=== PATIENT | female | born 1945 | race Caucasian/White ===

== ENCOUNTER 2017-05-11 01:50 | Inpatient (IN) | payer MEDICARE, OTHER ==
[~2017-05-11] VITALS: Ht 152.4 cm; Wt 70.0 kg
[2017-05-11] VITALS (7 sets, daily range): BP systolic 125–205; BP diastolic 60–99; PULSE 63–91; RESP 12–18; TEMP 97.5–98.2; O2SAT 96–98
[2017-05-11 02:53] LABS: AUTOMATED NEUTROPHIL # 4.9 TH/MM3 (1.8-7.7); BASOPHIL # 0.1 TH/MM3 (0-0.2); EOSINOPHIL # 0.4 TH/MM3 (0-0.4); EOSINOPHIL % 4.1 % (0.0-4.0); HEMATOCRIT 38.6 % (35.0-46.0); LYMPH % 31.1 % (9.0-44.0); LYMPHOCYTE # 2.9 TH/MM3 (1.0-4.8); MEAN CELL VOLUME 79.6 FL (80.0-100.0); MEAN CORPUSCULAR HEMOGLOBIN 26.5 PG (27.0-34.0); MEAN CORPUSCULAR HGB CONC 33.2 % (32.0-36.0); MONO % 11.5 % (0.0-8.0); NEUT % 52.3 % (16.0-70.0); PLATELET COUNT 287 TH/MM3 (150-450); RED BLOOD COUNT 4.85 MIL/MM3 (4.00-5.30); RED CELL DISTRIBUTION WIDTH 15.6 % (11.6-17.2); WHITE BLOOD COUNT 9.4 TH/MM3 (4.0-11.0)
[2017-05-11] MEDS ORDERED: DIVA250T3 PO (03:03)
[2017-05-11] MEDS ORDERED: ASCO100029 (03:03)
[2017-05-11] MEDS ORDERED: CENTCHW4 CHEW (03:03)
[2017-05-11] MEDS ORDERED: BUSP10TA PO (03:03)
[2017-05-11] MEDS ORDERED: METO50TA PO (03:03)
[2017-05-11] MEDS ORDERED: BENZ0.5T PO ×2 (03:03)
[2017-05-11] MEDS ORDERED: DICL100T3 PO (03:03)
[2017-05-11] MEDS ORDERED: CALC600T10 PO (03:03)
[2017-05-11] MEDS ORDERED: CYAN1TAB24 (03:03)
[2017-05-11] MEDS ORDERED: OMEP10CA PO (03:03)
[2017-05-11] MEDS ORDERED: CARB10TA2 PO (03:03)
[2017-05-11 03:11] LABS: HEMO FLAGS AUTO DIFF
[2017-05-11 03:18] LABS: ALT (GPT) 14 U/L (10-53); ANION GAP 10 MEQ/L (5-15); AST (GOT) 28 U/L (15-37); BICARBONATE 26.5 MEQ/L (21.0-32.0); BLOOD UREA NITROGEN 20 MG/DL (7-18); CHLORIDE 105 MEQ/L (98-107); GLOMERULAR FILTRATION RATE 101 ML/MIN (>89); SODIUM (NA) 141 MEQ/L (136-145)
[2017-05-11 03:23] LABS: ALCOHOL LESS THAN 3 MG/DL (0-5); POTASSIUM 3.6 MEQ/L (3.5-5.1)
[2017-05-11 03:27] LABS: ALKALINE PHOSPHATASE 74 U/L (45-117); TOTAL BILIRUBIN ADULT 0.6 MG/DL (0.2-1.0)
[2017-05-11 03:49] LABS: PLATELET ESTIMATE SMEAR NORMAL (NORMAL); PLATELET MORPHOLOGY NORMAL (NORMAL); SCAN/DIFF AUTO DIFF CONFIRMED
[2017-05-11 04:27] LABS: BACTERIA, URINE RARE /hpf; BLOOD, URINE NEG (NEG); COMMENT (UR) CULTURE INDICATED; CULTURE IF INDICATED CULTURE INDICATED; GLUCOSE,URINE NEG (NEG); HYALINE CAST, URINE 3 /lpf (RARE); KETONE, URINE 10 mg/dL (NEG); MUCUS URINE MANY /lpf (OCC); NITRITE,URINE NEG (NEG); SQUAMOUS EPITHELIAL CELL URINE 22 /hpf (0-5); TRANSITIONAL EPI CELLS, URINE <1 /hpf; URINE COLOR YELLOW (YELLW/STRAW)
--- NOTE | 2017-05-11 04:28 | PD ---
HPI Chief Complaint: Psychiatric Symptoms Time Seen by Provider: 03:58 Travel History International Travel<30 days: No Contact w/Intl Traveler<30days: No Traveled to known affect area: No History of Present Illness HPI 72-year-old white female presents to emergency department under [place] act by PD. According to the P[place] act the patient has been driving around for last 2 days and appears to be confused and lost. They were concerned that the patient is developing early dementia. The patient here states that she is from [facility]. Her partner just approximately one week ago due to complications of alcohol abuse. Family members are in the process of evicting her. She has nowhere to go. She has no money except for small amount of Social Security. She states that she used to live a life, as her father would say "a jenae". She states that she used to drink alcohol and do drugs but she has been sober and drug free for many years. She has quit smoking. Patient reports having a similar episode of driving around in the past. She states that she did not have any plans on going anywhere in particular but gotten her car and started driving. She states that she eventually ran out of gas. States that she has not been eating right. She states that she's not sure where she is currently and did not have any plans on going anywhere particular. Patient admits to feeling depressed. She has had thoughts in the past of suicide but has no current plan. Symptoms have been worse recently with her situational changes. She denies any homicidal ideation. No toxic ingestions. No recent illness. [facility] Past Medical History Narrative Medical History of alcohol and substance abuse, anxiety, depression, bipolar, hypertension Bipolar Disorder: Yes Anxiety: Yes Depression: Yes Hypertension: Yes Psychiatric: Yes Tetanus Vaccination: Unknown ?: Not Past Surgical History Narrative Surgical Cholecystectomy, hysterectomy Cholecystectomy: Yes Hysterectomy: Yes Other Surgery: Yes ("BREAST REDUCTION") Social History Alcohol Use: No Tobacco Use: No Substance Use: No Allergies-Medications (Allergen,Severity, Reaction): Coded Allergies: No Known Allergies (Unverified , 05/11/17) Reported Meds & Prescriptions Reported Meds & Active Scripts Active Reported Benztropine (Benztropine Mesylate) 0.5 Mg Tab 0.5 Mg PO HS Benztropine (Benztropine Mesylate) 0.5 Mg Tab 0.5 Mg PO BID Divalproex ER (Divalproex Sodium) 250 Mg Parviz 250 Mg PO HS Centrum (Multiple Vitamins W/ Minerals) 1 Chew 1 Tab CHEW DAILY Calcium + D3 (Calcium Carbonate-Cholecalciferol) 600-200 Mg-Unit Tab 1 Tab PO BID Vitamin C (Ascorbic Acid) 1,000 Mg Tablet.er B12 (Cyanocobalamin) 1,000 Mcg Tab 1,500 Carbidopa-Levodopa 10-100 Mg Tab 1 Tab PO TID Metoprolol Tartrate 50 Mg Tab 50 Mg PO BID Omeprazole 10 Mg Cap 10 Mg PO DAILY Diclofenac Sodium ER 24 HR (Diclofenac Sodium) 100 Mg Parviz 75 Mg PO DAILY Buspirone (Buspirone HCl) 10 Mg Tab 10 Mg PO BID Review of Systems General / Constitutional: No: Fever Eyes: No: Visual changes HENT: No: Headaches Cardiovascular: No: Chest Pain or Discomfort Respiratory: No: Shortness of Breath Gastrointestinal: No: Abdominal Pain Genitourinary: No: Dysuria Musculoskeletal: No: Pain Skin: No Rash Neurologic: No: Weakness Psychiatric: Positive: Depression, Suicidal Ideations, Mood Disorder, No: Anxiety, Disorder of Thought, Substance Abuse, Homicidal Ideation Endocrine: No: Polydipsia Hematologic/Lymphatic: No: Easy Bruising Physical Exam Narrative GENERAL: Well-nourished, well-developed patient. Patient is alert and oriented. SKIN: Warm and dry. HEAD: Normocephalic and atraumatic. EYES: No scleral icterus. No injection or drainage. ENT: No nasal drainage noted. Mucous membranes pink. Airway patent. NECK: Supple, trachea midline. Moves head freely without obvious discomfort. CARDIOVASCULAR: Regular rate and rhythm without murmurs, gallops, or rubs. RESPIRATORY: Breath sounds equal bilaterally. No accessory muscle use. GASTROINTESTINAL: Abdomen soft, non-tender, nondistended. EXTREMITIES: No cyanosis or edema. BACK: Nontender without obvious deformity. No CVA tenderness. NEURO: Patient is alert and oriented. no sensorimotor deficits. Nonfocal. Normal speech. PSYCH: No delusions. No auditory or visual hallucinations. Data Data Last Documented VS Vital Signs Date Time Temp Pulse Resp B/P (MAP) Pulse Ox O2 Delivery O2 Flow Rate FiO2 05/11/17 04:50 67 16 168/76 (106) 98 Room Air 05/11/17 02:09 97.9 Orders Orders Complete Blood Count With Diff (05/11/17 01:57) Comprehensive Metabolic Panel (05/11/17 01:57) Thyroid Stimulating Hormone (05/11/17 01:57) Urinalysis - C+S If Indicated (05/11/17 01:57) Psych Screen (05/11/17 01:57) Drug Screen, Random Urine (05/11/17 01:57) Alcohol (Ethanol) (05/11/17 01:57) Urine Culture (05/11/17 04:05) Labs Laboratory Tests Test 05/11/17 02:30 05/11/17 04:05 White Blood Count 9.4 TH/MM3 Red Blood Count 4.85 MIL/MM3 Hemoglobin 12.8 GM/DL Hematocrit 38.6 % Mean Corpuscular Volume 79.6 FL Mean Corpuscular Hemoglobin 26.5 PG Mean Corpuscular Hemoglobin Concent 33.2 % Red Cell Distribution Width 15.6 % Platelet Count 287 TH/MM3 Mean Platelet Volume 7.2 FL Neutrophils (%) (Auto) 52.3 % Lymphocytes (%) (Auto) 31.1 % Monocytes (%) (Auto) 11.5 % Eosinophils (%) (Auto) 4.1 % Basophils (%) (Auto) 1.0 % Neutrophils # (Auto) 4.9 TH/MM3 Lymphocytes # (Auto) 2.9 TH/MM3 Monocytes # (Auto) 1.1 TH/MM3 Eosinophils # (Auto) 0.4 TH/MM3 Basophils # (Auto) 0.1 TH/MM3 CBC Comment AUTO DIFF Differential Comment AUTO DIFF CONFIRMED Platelet Estimate NORMAL Platelet Morphology Comment NORMAL Blood Urea Nitrogen 20 MG/DL Creatinine 0.59 MG/DL Random Glucose 102 MG/DL Total Protein 6.9 GM/DL Albumin 3.6 GM/DL Calcium Level 9.3 MG/DL Alkaline Phosphatase 74 U/L Aspartate Amino Transf (AST/SGOT) 28 U/L Alanine Aminotransferase (ALT/SGPT) 14 U/L Total Bilirubin 0.6 MG/DL Sodium Level 141 MEQ/L Potassium Level 3.6 MEQ/L Chloride Level 105 MEQ/L Carbon Dioxide Level 26.5 MEQ/L Anion Gap 10 MEQ/L Estimat Glomerular Filtration Rate 101 ML/MIN Thyroid Stimulating Hormone 3rd Gen 6.400 uIU/ML Ethyl Alcohol Level LESS THAN 3 MG/DL Urine Color YELLOW Urine Turbidity HAZY Urine pH 6.0 Urine Specific [place] 1.028 Urine Protein 30 mg/dL Urine Glucose (UA) NEG mg/dL Urine Ketones 10 mg/dL Urine Occult Blood NEG Urine Nitrite NEG Urine Bilirubin NEG Urine Urobilinogen 2.0 MG/DL Urine Leukocyte Esterase LARGE Urine RBC 8 /hpf Urine WBC /hpf Urine Squamous Epithelial Cells 22 /hpf Urine Transitional Epithelial Cells <1 /hpf Urine Bacteria RARE /hpf Urine Hyaline Casts 3 /lpf Urine Mucus MANY /lpf Microscopic Urinalysis Comment CULTURE INDICATED Urine Opiates Screen NEG Urine Barbiturates Screen NEG Urine Amphetamines Screen NEG Urine Benzodiazepines Screen NEG Urine Cocaine Screen NEG Urine Cannabinoids Screen NEG MDM Medical Decision Making Medical Screen Exam Complete: Yes Emergency Medical Condition: Yes Medical Record Reviewed: Yes Interpretation(s) Laboratory Tests Test 05/11/17 02:30 05/11/17 04:05 White Blood Count 9.4 TH/MM3 Red Blood Count 4.85 MIL/MM3 Hemoglobin 12.8 GM/DL Hematocrit 38.6 % Mean Corpuscular Volume 79.6 FL Mean Corpuscular Hemoglobin 26.5 PG Mean Corpuscular Hemoglobin Concent 33.2 % Red Cell Distribution Width 15.6 % Platelet Count 287 TH/MM3 Mean Platelet Volume 7.2 FL Neutrophils (%) (Auto) 52.3 % Lymphocytes (%) (Auto) 31.1 % Monocytes (%) (Auto) 11.5 % Eosinophils (%) (Auto) 4.1 % Basophils (%) (Auto) 1.0 % Neutrophils # (Auto) 4.9 TH/MM3 Lymphocytes # (Auto) 2.9 TH/MM3 Monocytes # (Auto) 1.1 TH/MM3 Eosinophils # (Auto) 0.4 TH/MM3 Basophils # (Auto) 0.1 TH/MM3 CBC Comment AUTO DIFF Differential Comment AUTO DIFF CONFIRMED Platelet Estimate NORMAL Platelet Morphology Comment NORMAL Blood Urea Nitrogen 20 MG/DL Creatinine 0.59 MG/DL Random Glucose 102 MG/DL Total Protein 6.9 GM/DL Albumin 3.6 GM/DL Calcium Level 9.3 MG/DL Alkaline Phosphatase 74 U/L Aspartate Amino Transf (AST/SGOT) 28 U/L Alanine Aminotransferase (ALT/SGPT) 14 U/L Total Bilirubin 0.6 MG/DL Sodium Level 141 MEQ/L Potassium Level 3.6 MEQ/L Chloride Level 105 MEQ/L Carbon Dioxide Level 26.5 MEQ/L Anion Gap 10 MEQ/L Estimat Glomerular Filtration Rate 101 ML/MIN Thyroid Stimulating Hormone 3rd Gen 6.400 uIU/ML Ethyl Alcohol Level LESS THAN 3 MG/DL Urine Color YELLOW Urine Turbidity HAZY Urine pH 6.0 Urine Specific [place] 1.028 Urine Protein 30 mg/dL Urine Glucose (UA) NEG mg/dL Urine Ketones 10 mg/dL Urine Occult Blood NEG Urine Nitrite NEG Urine Bilirubin NEG Urine Urobilinogen 2.0 MG/DL Urine Leukocyte Esterase LARGE Urine RBC 8 /hpf Urine WBC /hpf Urine Squamous Epithelial Cells 22 /hpf Urine Transitional Epithelial Cells <1 /hpf Urine Bacteria RARE /hpf Urine Hyaline Casts 3 /lpf Urine Mucus MANY /lpf Microscopic Urinalysis Comment CULTURE INDICATED Urine Opiates Screen NEG Urine Barbiturates Screen NEG Urine Amphetamines Screen NEG Urine Benzodiazepines Screen NEG Urine Cocaine Screen NEG Urine Cannabinoids Screen NEG Differential Diagnosis MDM: High Differential diagnoses: Schizophrenia, schizoaffective disorder, bipolar, anxiety, depression, adjustment reaction, mood disorder NOS, ODD, depressive disorder NOS, dementia, dementia with agitation, psychosis NOS, substance induced mood disorder, DMDD, Asperger syndrome, infection,electrolyte abnormality, malingering. Narrative Course Mental health screening discussed with the patient. Psychiatric screen ordered. The patient is been medically cleared. This is medical clearance for psychiatric admission, adjustment reaction with acute depression, UTI Diagnosis Primary Impression: Medical clearance for psychiatric admission Additional Impressions: Adjustment reaction with anxiety and depression UTI Med/Other Pt SpecificInfo: Prescription(s) given Scripts Sulfamethoxazole-Trimethoprim (Bactrim DS) 800-160 Mg Tab 1 TAB PO BID for Infection, #14 TAB 0 Refills Prov: Thor Palomino MD 05/11/17 Condition: Stable Placido Eller May 11, 2017 04:28
[2017-05-11] MEDS ORDERED: BACT800T5 PO (05:32)
[2017-05-11] MEDS ORDERED: SULFAMETHOXAZOLE-TRIMETHOPRIM DS 800-160 MG TAB PO ONE (07:00)
--- NOTE | 2017-05-11 08:44 | HHI.HP ---
Provisional Diagnosis Admission Date Certification of Person's Competence To Provide Express and Informed Consent I have personally examined Jenifer Horner , a person being served at [facility] on, May 11, 2017 08:42. Express and informed consent means consent voluntarily given in writing, by a competent person, after sufficient explanation and disclosure of the subject matter involved to enable the person to make a knowing and willful decision without any element of force, fraud, deceit, duress, or other form of constraint or coercion. This person is 18 years of age or older, is not now known to be incompetent to consent to treatment with a guardian advocate, and does not have a health care surrogate or proxy currently making medical treatment decisions. I have found this person to be one of the following: [] Competent to provide express and informed consent, as defined above, for voluntary admission to this facility and is competent to provide express and informed consent for treatment. He/she has the consistent capacity to make well reasoned, willful, and knowing decisions concerning his or her medical or mental health treatment. The person fully and consistently understands the purpose of the admission for examination/placement and is fully capable of personally exercising all rights [place] [] Incompetent to provide express and informed consent to voluntary admission, and this is incompetent to provide express and informed consent to treatment. The person must be transferred to involuntary status and a petition for a guardian advocate filed with the Circuit Court. [] Refusing to provide express and informed consent to voluntary admission but is competent to provide express and informed consent for treatment. The person must be discharged or transferred to involuntary status. Form shall be completed within 24 hours of a person's arrival at the receiving facility and filed in the clinical record of each person: 1. Admitted on a voluntary basis 2. Permitted to provide express and informed consent to his/her own treatment 3. Allowed to transfer from involuntary to voluntary status 4. Prior to permitting a person to consent to his or her own treatment after having been previously found incompetent to consent to treatment. Past Family Social History Coded Allergies: No Known Allergies (Unverified , 05/11/17) Active Scripts Sulfamethoxazole-Trimethoprim (Bactrim DS) 800-160 Mg Tab, 1 TAB PO BID for Infection, #14 TAB 0 Refills Prov:Thor Palomino MD 05/11/17 Reported Medications Benztropine (Benztropine) 0.5 Mg Tab, 0.5 MG PO HS, #30 TAB 0 Refills 05/11/17 Benztropine (Benztropine) 0.5 Mg Tab, 0.5 MG PO BID, #60 TAB 0 Refills 05/11/17 Divalproex ER (Divalproex ER) 250 Mg Parviz, 250 MG PO HS for Control Seizures, # 30 TAB 0 Refills 05/11/17 Multiple Vitamins W/ Minerals (Centrum) 1 Chew, 1 TAB CHEW DAILY for Nutritional Supplement, TAB 0 Refills 05/11/17 Calcium Carbonate-Cholecalciferol (Calcium + D3) 600-200 Mg-Unit Tab, 1 TAB PO BID, TAB 05/11/17 Ascorbic Acid (Vitamin C) 1,000 Mg Tablet.er 05/11/17 Cyanocobalamin (B12) 1,000 Mcg Tab, 1500 05/11/17 Carbidopa-Levodopa (Carbidopa-Levodopa) 10-100 Mg Tab, 1 TAB PO TID for Parkinson Disease Mgmt, #90 TAB 0 Refills 05/11/17 Metoprolol Tartrate (Metoprolol Tartrate) 50 Mg Tab, 50 MG PO BID, #30 TAB 0 Refills 05/11/17 Omeprazole (Omeprazole) 10 Mg Cap, 10 MG PO DAILY, #30 CAP 0 Refills 05/11/17 Diclofenac Sodium ER 24 HR (Diclofenac Sodium ER 24 HR) 100 Mg Parviz, 75 MG PO DAILY, TAB 0 Refills 05/11/17 Buspirone (Buspirone) 10 Mg Tab, 10 MG PO BID for Anxiety, TAB 0 Refills 05/11/17 Physical Exam Vital Signs Vital Signs Date Time Temp Pulse Resp B/P (MAP) Pulse Ox O2 Delivery O2 Flow Rate FiO2 05/11/17 04:50 67 16 168/76 (106) 98 Room Air 05/11/17 02:09 97.9 I/O 05/11/17 05/11/17 05/12/17 08:00 16:00 00:00 Intake Total 420 ml Balance 420 ml Lab Results Test 05/11/17 02:30 05/11/17 04:05 White Blood Count 9.4 TH/MM3 Red Blood Count 4.85 MIL/MM3 Hemoglobin 12.8 GM/DL Hematocrit 38.6 % Mean Corpuscular Volume 79.6 FL Mean Corpuscular Hemoglobin 26.5 PG Mean Corpuscular Hemoglobin Concent 33.2 % Red Cell Distribution Width 15.6 % Platelet Count 287 TH/MM3 Mean Platelet Volume 7.2 FL Neutrophils (%) (Auto) 52.3 % Lymphocytes (%) (Auto) 31.1 % Monocytes (%) (Auto) 11.5 % Eosinophils (%) (Auto) 4.1 % Basophils (%) (Auto) 1.0 % Neutrophils # (Auto) 4.9 TH/MM3 Lymphocytes # (Auto) 2.9 TH/MM3 Monocytes # (Auto) 1.1 TH/MM3 Eosinophils # (Auto) 0.4 TH/MM3 Basophils # (Auto) 0.1 TH/MM3 CBC Comment AUTO DIFF Differential Comment AUTO DIFF CONFIRMED Platelet Estimate NORMAL Platelet Morphology Comment NORMAL Blood Urea Nitrogen 20 MG/DL Creatinine 0.59 MG/DL Random Glucose 102 MG/DL Total Protein 6.9 GM/DL Albumin 3.6 GM/DL Calcium Level 9.3 MG/DL Alkaline Phosphatase 74 U/L Aspartate Amino Transf (AST/SGOT) 28 U/L Alanine Aminotransferase (ALT/SGPT) 14 U/L Total Bilirubin 0.6 MG/DL Sodium Level 141 MEQ/L Potassium Level 3.6 MEQ/L Chloride Level 105 MEQ/L Carbon Dioxide Level 26.5 MEQ/L Anion Gap 10 MEQ/L Estimat Glomerular Filtration Rate 101 ML/MIN Thyroid Stimulating Hormone 3rd Gen 6.400 uIU/ML Ethyl Alcohol Level LESS THAN 3 MG/DL Urine Color YELLOW Urine Turbidity HAZY Urine pH 6.0 Urine Specific [place] 1.028 Urine Protein 30 mg/dL Urine Glucose (UA) NEG mg/dL Urine Ketones 10 mg/dL Urine Occult Blood NEG Urine Nitrite NEG Urine Bilirubin NEG Urine Urobilinogen 2.0 MG/DL Urine Leukocyte Esterase LARGE Urine RBC 8 /hpf Urine WBC /hpf Urine Squamous Epithelial Cells 22 /hpf Urine Transitional Epithelial Cells <1 /hpf Urine Bacteria RARE /hpf Urine Hyaline Casts 3 /lpf Urine Mucus MANY /lpf Microscopic Urinalysis Comment CULTURE INDICATED Urine Opiates Screen NEG Urine Barbiturates Screen NEG Urine Amphetamines Screen NEG Urine Benzodiazepines Screen NEG Urine Cocaine Screen NEG Urine Cannabinoids Screen NEG Date/Time Source Procedure Growth Status 05/11/17 04:05 Urine Clean Catch Urine Culture Pending Worksheet Assessment & Plan Problem List: (1) Dementia ICD Codes: F03.90 - Unspecified dementia without behavioral disturbance Assessment & Plan: Patient is for psychiatric admission in 2600.m Assessment & Plan Estimated LOS: days Problem Qualifiers (1) Dementia: Saw Johnson MD May 11, 2017 08:44
[2017-05-11] MEDS ORDERED: LORazepam 2 MG/ML VIAL IM PRN ×2 (09:00)
[2017-05-11] MEDS ORDERED: ALUMINUM/MAGNESIUM/SIMETH 30 ML CUP PO PRN (09:00)
[2017-05-11] MEDS ORDERED: MAGNESIUM HYDROXIDE SUSP 30 ML CUP PO PRN (09:00)
[2017-05-11] MEDS ORDERED: LORazepam 1 MG TAB PO PRN (09:00)
[2017-05-11] MEDS ORDERED: LORazepam 0.5 MG TAB PO PRN (09:00)
[2017-05-11] MEDS: busPIRone HCL 10 MG TAB PO SCH ×2 (10:46→20:25)
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
[2017-05-11] MEDS: METOPROLOL TARTRATE 50 MG TAB PO SCH ×2 (11:00→20:25)
[2017-05-11] MEDS: ACETAMINOPHEN 325 MG TAB PO PRN ×2 (11:00→20:26)
[2017-05-11] MEDS: NICOTINE 21 MG/24 HR PATCH T-DERMAL SCH (11:00)
[2017-05-11] MEDS: DICLOFENAC SODIUM 75 MG DELAYED RELEASE TAB PO SCH (11:00)
[2017-05-11] MEDS ORDERED: OMEPRAZOLE 10 MG PO SCH (12:45)
[2017-05-11] MEDS: CARBIDOPA/LEVODOPA 10 MG/100 MG TAB PO SCH ×2 (13:00→18:00)
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
--- NOTE | 2017-05-11 13:56 | PD.PSY.CON ---
Provisional Diagnosis Admission Date May 11, 2017 at 08:49 Rumsey I. Unspecified Major neurocognitive disorder, history of bipolar disorder and depression Rumsey II. Deferred Rumsey III. Parkinson's disease, hypertension, UTI Rumsey IV. Poor family and social support Rumsey V. 40 History of Present Illness Service Psychiatry Consult Requested By Dr. Tidwell Reason for Consult Second opinion petition supporting [employer] act Primary Care Physician Unknown HPI The patient is a 72-year-old woman, held alone in [place], , with psychiatric history of depression, anxiety and bipolar disorder, 2 previous psychiatric hospitalizations, 2 previous suicidal attempts, she is currently go 250 mg twice a day, buspirone 20 mg 3 times a day, prescribed by PCP, she has medical history of Parkinson's disease, hypertension, who presents to emergency department under Paredes act by PD. According to the Paredes act the patient has been driving around for last 2 days and appears to be confused and lost. o. She has no money except for small amount of Social Security. She states that she used to live a life, as her father would say "chalino emanuel". She states that she used to drink alcohol and do drugs but she has been sober and drug free for many years. She has quit smoking. Patient They were concerned that the patient is developing early dementia. The patient here states that she is from [facility]. Her partner just approximately one week ago due to complications of alcohol abuse. Family members are in the process of evicting her. She has nowhere to report having a similar episode of driving around in the past. She states that she did not have any plans on going anywhere in particular but gotten her car and started driving. She states that she eventually ran out of gas. States that she has not been eating right. She states that she's not sure where she is currently and did not have any plans on going anywhere particular. Chart was reviewed, patient was seen for psychiatric elevation in [facility] along with nurse in charge Jimmy. Patient is calm, cooperative about pleasantly confused. Patient says that she knows that she is in the hospital, but she doesn't know where. He knows that she was stopped by the police when she was driving to [place] "even though I don't even know what is the reason he was going to [place]". She says that her car stop without gas in the highway. She reports depressed mood due to her current situation. But she denies hopelessness, helplessness, worthlessness, patient denies suicidal and homicidal ideation, she denies visual and auditory hallucinations. Patient does not know the date, the rocket motor tester, he was able to repeat 3 words, but unable to recall in 5 minutes later. Patient says that her major problem right now is that she does not know what to do, since she was just evicted from her house and she doesn't even know where her car is. The patient has a daughter, but she doesn't remember her telephone number. She gave me the telephone number of her friend Chelle, [phone], but unfortunately he could not reach her this morning. The patient denies the use of alcohol and illicit drugs. 05/11 17 Above note dictated by Dr. Tidwell reviewed and agreed with. Patient seen in dayroom with floor staff. Patient appears to be showing some improvement in her orientation her mood and her memory. Though she still has some black spots relating her driving to self [place] and back. She denies though somewhat vague about suicidality. Dr. Tidwell has done first opinion petition supporting [employer] act. I agree. Patient meets criteria for involuntary psychiatric hospitalization under the [employer] act. Thus will cosign second opinion petition supporting [employer] act Past Family Social History Coded Allergies: No Known Allergies (Unverified , 05/11/17) Active Scripts Sulfamethoxazole-Trimethoprim (Bactrim DS) 800-160 Mg Tab, 1 TAB PO BID for Infection, #14 TAB 0 Refills Prov:Thor Palomino MD 05/11/17 Reported Medications Benztropine (Benztropine) 0.5 Mg Tab, 0.5 MG PO HS, #30 TAB 0 Refills 05/11/17 Benztropine (Benztropine) 0.5 Mg Tab, 0.5 MG PO BID, #60 TAB 0 Refills 05/11/17 Divalproex ER (Divalproex ER) 250 Mg Parviz, 250 MG PO HS for Control Seizures, # 30 TAB 0 Refills 05/11/17 Multiple Vitamins W/ Minerals (Centrum) 1 Chew, 1 TAB CHEW DAILY for Nutritional Supplement, TAB 0 Refills 05/11/17 Calcium Carbonate-Cholecalciferol (Calcium + D3) 600-200 Mg-Unit Tab, 1 TAB PO BID, TAB 05/11/17 Ascorbic Acid (Vitamin C) 1,000 Mg Tablet.er 05/11/17 Cyanocobalamin (B12) 1,000 Mcg Tab, 1500 05/11/17 Carbidopa-Levodopa (Carbidopa-Levodopa) 10-100 Mg Tab, 1 TAB PO TID for Parkinson Disease Mgmt, #90 TAB 0 Refills 05/11/17 Metoprolol Tartrate (Metoprolol Tartrate) 50 Mg Tab, 50 MG PO BID, #30 TAB 0 Refills 05/11/17 Omeprazole (Omeprazole) 10 Mg Cap, 10 MG PO DAILY, #30 CAP 0 Refills 05/11/17 Diclofenac Sodium ER 24 HR (Diclofenac Sodium ER 24 HR) 100 Mg Parviz, 75 MG PO DAILY, TAB 0 Refills 05/11/17 Buspirone (Buspirone) 10 Mg Tab, 10 MG PO BID for Anxiety, TAB 0 Refills 05/11/17 Current Medications Medications (Trade) Dose Ordered Sig/Carolin Route Start Time Stop Time Status Last Admin (Ativan) 1 mg Q6H PRN PO 05/11/17 09:00 (Ativan Inj) 1 mg Q6H PRN IM 05/11/17 09:00 (Ativan) 0.5 mg Q12H PRN PO 05/11/17 09:00 (Ativan Inj) 0.5 mg Q12H PRN IM 05/11/17 09:00 (Tylenol) 650 mg Q4H PRN PO 05/11/17 09:00 (Milk Of Magnesia Liq) 30 ml DAILY PRN PO 05/11/17 09:00 (Mag-Al Plus Susp Liq) 30 ml Q6H PRN PO 05/11/17 09:00 (Habitrol 21 Mg Patch.24 Hr) 1 patch DAILY T-DERMAL 05/11/17 11:00 (Buspar) 10 mg BID PO 05/11/17 10:46 05/11/17 10:46 (Sinemet 10-100 Mg) 1 tab TID PO 05/11/17 13:00 (Depakote Er) 250 mg HS PO 05/11/17 21:00 (Lopressor) 50 mg BID PO 05/11/17 11:00 05/11/17 11:00 (Bactrim Ds 800-160 Mg) 1 tab BID PO 05/11/17 21:00 (Voltaren ) 75 mg DAILY PO 05/11/17 11:00 Patient Own Medication PT OWN MED: OMEPRAZ... DAILY PO 05/11/17 12:45 Future Hold Miscellaneous Information 1 DAILY T-DERMAL 05/12/17 09:00 Physical Exam Vital Signs Vital Signs Date Time Temp Pulse Resp B/P (MAP) Pulse Ox O2 Delivery O2 Flow Rate FiO2 05/11/17 12:45 05/11/17 12:44 76 18 96 Room Air 05/11/17 02:09 97.9 I/O 05/11/17 05/11/17 05/12/17 08:00 16:00 00:00 Intake Total 420 ml Balance 420 ml Lab Results Test 05/11/17 02:30 05/11/17 04:05 White Blood Count 9.4 TH/MM3 Red Blood Count 4.85 MIL/MM3 Hemoglobin 12.8 GM/DL Hematocrit 38.6 % Mean Corpuscular Volume 79.6 FL Mean Corpuscular Hemoglobin 26.5 PG Mean Corpuscular Hemoglobin Concent 33.2 % Red Cell Distribution Width 15.6 % Platelet Count 287 TH/MM3 Mean Platelet Volume 7.2 FL Neutrophils (%) (Auto) 52.3 % Lymphocytes (%) (Auto) 31.1 % Monocytes (%) (Auto) 11.5 % Eosinophils (%) (Auto) 4.1 % Basophils (%) (Auto) 1.0 % Neutrophils # (Auto) 4.9 TH/MM3 Lymphocytes # (Auto) 2.9 TH/MM3 Monocytes # (Auto) 1.1 TH/MM3 Eosinophils # (Auto) 0.4 TH/MM3 Basophils # (Auto) 0.1 TH/MM3 CBC Comment AUTO DIFF Differential Comment AUTO DIFF CONFIRMED Platelet Estimate NORMAL Platelet Morphology Comment NORMAL Blood Urea Nitrogen 20 MG/DL Creatinine 0.59 MG/DL Random Glucose 102 MG/DL Total Protein 6.9 GM/DL Albumin 3.6 GM/DL Calcium Level 9.3 MG/DL Alkaline Phosphatase 74 U/L Aspartate Amino Transf (AST/SGOT) 28 U/L Alanine Aminotransferase (ALT/SGPT) 14 U/L Total Bilirubin 0.6 MG/DL Sodium Level 141 MEQ/L Potassium Level 3.6 MEQ/L Chloride Level 105 MEQ/L Carbon Dioxide Level 26.5 MEQ/L Anion Gap 10 MEQ/L Estimat Glomerular Filtration Rate 101 ML/MIN Thyroid Stimulating Hormone 3rd Gen 6.400 uIU/ML Valproic Acid (Depakene) Level 26 MCG/ML Ethyl Alcohol Level LESS THAN 3 MG/DL Urine Color YELLOW Urine Turbidity HAZY Urine pH 6.0 Urine Specific [place] 1.028 Urine Protein 30 mg/dL Urine Glucose (UA) NEG mg/dL Urine Ketones 10 mg/dL Urine Occult Blood NEG Urine Nitrite NEG Urine Bilirubin NEG Urine Urobilinogen 2.0 MG/DL Urine Leukocyte Esterase LARGE Urine RBC 8 /hpf Urine WBC /hpf Urine Squamous Epithelial Cells 22 /hpf Urine Transitional Epithelial Cells <1 /hpf Urine Bacteria RARE /hpf Urine Hyaline Casts 3 /lpf Urine Mucus MANY /lpf Microscopic Urinalysis Comment CULTURE INDICATED Urine Opiates Screen NEG Urine Barbiturates Screen NEG Urine Amphetamines Screen NEG Urine Benzodiazepines Screen NEG Urine Cocaine Screen NEG Urine Cannabinoids Screen NEG Date/Time Source Procedure Growth Status 05/11/17 04:05 Urine Clean Catch Urine Culture Pending Worksheet Mental Status Examination Appearance: Appropriate Consciousness: Alert Orientation: Person Motor Activity: Normal gait Speech: Unremarkable Language: Adequate Fund of Knowledge: Adequate Attention and Concentration: Adequate Memory: Impaired Mood: Sad Affect: Appropriate Thought Process & Associations: Intact Thought Content: Appropriate Hallucination Type: None Delusion Type: None Suicidal Ideation: No Suicidal Plan: No Suicidal Intention: No Homicidal Ideation: No Homicidal Plan: No Homicidal Intention: No Insight: Adequate Judgment: Adequate Assessment & Plan Problem List: (1) Dementia ICD Codes: F03.90 - Unspecified dementia without behavioral disturbance Assessment & Plan Estimated LOS: days Problem Qualifiers (1) Dementia: Johann Casanova MD May 11, 2017 13:56
[2017-05-11] MEDS: SULFAMETHOXAZOLE-TRIMETHOPRIM DS 800-160 MG TAB PO SCH (20:25)
[2017-05-11] MEDS: DIVALPROEX SODIUM E.R. 250 MG TAB PO SCH (20:25)
[2017-05-12 05:51] VITALS: BP 149/66; PULSE 64; RESP 18; TEMP 98; O2SAT 96
[2017-05-12] MEDS: CARBIDOPA/LEVODOPA 10 MG/100 MG TAB PO SCH ×3 (08:38→17:14)
[2017-05-12] MEDS: busPIRone HCL 10 MG TAB PO SCH ×2 (08:38→23:30)
[2017-05-12] MEDS: amLODIPine BESYLATE 5 MG TAB PO SCH (08:38)
[2017-05-12] MEDS: SULFAMETHOXAZOLE-TRIMETHOPRIM DS 800-160 MG TAB PO SCH ×2 (08:38→23:30)
[2017-05-12] MEDS: METOPROLOL TARTRATE 50 MG TAB PO SCH ×2 (08:38→23:30)
[2017-05-12] MEDS: NICOTINE 21 MG/24 HR PATCH T-DERMAL SCH (08:44)
[2017-05-12] MEDS: REMOVE OLD PATCH T-DERMAL SCH (08:44)
[2017-05-12] MEDS: DICLOFENAC SODIUM 75 MG DELAYED RELEASE TAB PO SCH (09:00)
--- NOTE | 2017-05-12 10:17 | HHI.PYPN ---
Subjective Remarks Patient seen in [facility] with nurse Martin, chart review, patient compliant medication. Patient alert showing some improved orientation. Though still confused about her journey to [facility] and return. She still vague about placement upon discharge. She is concerned about her vehicle, her furniture and clothing that are still in the house. She is afraid that it will be thrown to the curb soon. Will have counselor contact her significant other's family to discuss this. Depakote level on 05/11 was 26 Review of Systems Except as stated in HPI: all other systems reviewed are Neg Mental Status Examination Appearance: Appropriate Consciousness: Alert Orientation: Person, Place, Date/Time Motor Activity: Normal gait Speech: Unremarkable Language: Adequate Fund of Knowledge: Adequate Attention and Concentration: Adequate Memory: Impaired Mood: Sad Affect: Appropriate Thought Process & Associations: Intact Thought Content: Appropriate Hallucination Type: None Delusion Type: None Suicidal Ideation: No Suicidal Plan: No Suicidal Intention: No Homicidal Ideation: No Homicidal Plan: No Homicidal Intention: No Insight: Adequate Judgment: Adequate Results Labs Date/Time Source Procedure Growth Status 05/11/17 04:05 Urine Clean Catch Urine Culture Pending Worksheet Vitals/IOs Vital Signs Date Time Temp Pulse Resp B/P (MAP) Pulse Ox O2 Delivery O2 Flow Rate FiO2 05/12/17 05:51 98.0 64 18 149/66 (93) 96 05/11/17 12:44 Room Air Assessment & Plan Problem List: (1) Dementia ICD Codes: F03.90 - Unspecified dementia without behavioral disturbance Assessment & Plan Estimated LOS: days patient's confusion lifting somewhat, she is been no behavioral problems. Compliant medications. For now continue treatment no change Justification for Cont. Inpt. At this time patient will decompensate in place to the lower level of care Discharge Planning Yu placement is confusing. Problem Qualifiers (1) Dementia: Johann Casanova MD May 12, 2017 10:17
[2017-05-12 11:18] LABS: ANION GAP 6 MEQ/L (5-15); BICARBONATE 28.7 MEQ/L (21.0-32.0); BLOOD UREA NITROGEN 14 MG/DL (7-18); CHLORIDE 109 MEQ/L (98-107); GLOMERULAR FILTRATION RATE 90 ML/MIN (>89); POTASSIUM 3.6 MEQ/L (3.5-5.1); SODIUM (NA) 144 MEQ/L (136-145)
[2017-05-12 11:20] LABS: LDL CHOLESTEROL 125 MG/DL (0-99)
[2017-05-12] MEDS ORDERED: ONDANSETRON HCL 4 MG/2 ML VIAL ONE (13:13)
[2017-05-12] MEDS ORDERED: ONDANSETRON HCL 4 MG/2 ML VIAL IM STA (13:13)
[2017-05-12 17:28] VITALS: BP 165/91; PULSE 64; RESP 18; TEMP 97.9; O2SAT 98
[2017-05-12 18:26] LABS: HEMOGLOBIN A1a 1.4 %; HEMOGLOBIN Ao 85.9 %; HEMOGLOBIN F 0.8 %; HEMOGLOBIN LA1C 1.8 %; HEMOGLOBIN P3 3.6 %
[2017-05-12] MEDS: DIVALPROEX SODIUM E.R. 250 MG TAB PO SCH (23:30)
[2017-05-13 05:49] VITALS: BP 165/73; PULSE 73; RESP 18; TEMP 98.2; O2SAT 93
[2017-05-13] MEDS: amLODIPine BESYLATE 5 MG TAB PO SCH (08:47)
[2017-05-13] MEDS: busPIRone HCL 10 MG TAB PO SCH ×2 (08:47→21:13)
[2017-05-13] MEDS: METOPROLOL TARTRATE 50 MG TAB PO SCH ×2 (08:47→21:13)
[2017-05-13] MEDS: DICLOFENAC SODIUM 75 MG DELAYED RELEASE TAB PO SCH (08:47)
[2017-05-13] MEDS: CARBIDOPA/LEVODOPA 10 MG/100 MG TAB PO SCH ×3 (08:47→17:20)
[2017-05-13] MEDS: NICOTINE 21 MG/24 HR PATCH T-DERMAL SCH (09:00)
[2017-05-13] MEDS: SULFAMETHOXAZOLE-TRIMETHOPRIM DS 800-160 MG TAB PO SCH ×2 (09:00→21:13)
[2017-05-13] MEDS: REMOVE OLD PATCH T-DERMAL SCH (09:00)
[2017-05-13 09:56] LABS: FREE T4 1.15 NG/DL (0.76-1.46)
--- NOTE | 2017-05-13 13:08 | HHI.PYPN ---
Subjective Remarks Patient seen in day room with nurse Martin and medical student carrie, patient calm cooperative showing a little confusion about what sampling with her but it appears that her boyfriend's family are helping to arrange for placement for this lady. She is also concerned about her furniture and her other possessions. A vehicle. It appears the working with this also. Patient denies suicidality homicidality or voices or visions. For now continue treatment as continue to work with placement issues Review of Systems Except as stated in HPI: all other systems reviewed are Neg Mental Status Examination Appearance: Appropriate Consciousness: Alert Orientation: Person, Place, Date/Time Motor Activity: Normal gait Speech: Unremarkable Language: Adequate Fund of Knowledge: Adequate Attention and Concentration: Adequate Memory: Impaired Mood: Sad Affect: Appropriate Thought Process & Associations: Intact Thought Content: Appropriate Hallucination Type: None Delusion Type: None Suicidal Ideation: No Suicidal Plan: No Suicidal Intention: No Homicidal Ideation: No Homicidal Plan: No Homicidal Intention: No Insight: Adequate Judgment: Adequate Results Labs Test 05/13/17 08:30 Free Thyroxine 1.15 NG/DL Thyroid Stimulating Hormone 3rd Gen 2.720 uIU/ML Date/Time Source Procedure Growth Status 05/11/17 04:05 Urine Clean Catch Urine Culture - Final 50-100,000 CFU/ML MIXED GRAM POSITIVE... Complete Vitals/IOs Vital Signs Date Time Temp Pulse Resp B/P (MAP) Pulse Ox O2 Delivery O2 Flow Rate FiO2 05/13/17 05:49 98.2 73 18 165/73 (103) 93 05/11/17 12:44 Room Air Assessment & Plan Problem List: (1) DEMENTIA IN OTH DISEASES CLASSD ELSWHR W BEHAVIORAL DISTURB ICD Codes: F02.81 - DEMENTIA IN OTH DISEASES CLASSD ELSWHR W BEHAVIORAL DISTURB (2) OTHER ALZHEIMER'S DISEASE ICD Codes: G30.8 - OTHER ALZHEIMER'S DISEASE Assessment & Plan Estimated LOS: days patient recently confusion though her mood is stabilizing she does denies suicidality at this time. We continue to work on placement issues Justification for Cont. Inpt. At this time patient decompensate if not placed in an appropriate level of care Discharge Planning We are working with patient's boyfriend's family with placement issues Johann Casanova MD May 13, 2017 13:07
[2017-05-13] MEDS ORDERED: ONDANSETRON HCL 4 MG/2 ML VIAL ONE (14:33)
[2017-05-13 16:53] VITALS: BP 125/67; PULSE 95; RESP 16; TEMP 98.1
[2017-05-13] MEDS: DIVALPROEX SODIUM E.R. 250 MG TAB PO SCH (21:12)
[2017-05-14 06:02] VITALS: BP 155/94; PULSE 61; RESP 16; TEMP 98.1; O2SAT 97
[2017-05-14] MEDS: amLODIPine BESYLATE 5 MG TAB PO SCH (08:44)
[2017-05-14] MEDS: METOPROLOL TARTRATE 50 MG TAB PO SCH ×2 (08:44→21:30)
[2017-05-14] MEDS: SULFAMETHOXAZOLE-TRIMETHOPRIM DS 800-160 MG TAB PO SCH (08:44)
[2017-05-14] MEDS: DICLOFENAC SODIUM 75 MG DELAYED RELEASE TAB PO SCH (08:44)
[2017-05-14] MEDS: busPIRone HCL 10 MG TAB PO SCH ×2 (08:45→21:29)
[2017-05-14] MEDS: REMOVE OLD PATCH T-DERMAL SCH (08:45)
[2017-05-14] MEDS: NICOTINE 21 MG/24 HR PATCH T-DERMAL SCH (08:45)
[2017-05-14] MEDS: CARBIDOPA/LEVODOPA 10 MG/100 MG TAB PO SCH ×3 (08:49→17:23)
[2017-05-14] MEDS: ACETAMINOPHEN 325 MG TAB PO PRN (10:12)
--- NOTE | 2017-05-14 16:11 | HHI.PYPN ---
Subjective Remarks Pt seen and discussed with staff. She is compliant with medications and denies side effects. She is forgetful and has been isolating to her room. She refused lunch today. No SI/HI. Mental Status Examination Appearance: Appropriate Consciousness: Alert Orientation: Person, Place, Date/Time Motor Activity: Normal gait Speech: Unremarkable Language: Adequate Fund of Knowledge: Adequate Attention and Concentration: Adequate Memory: Impaired Mood: Sad Affect: Appropriate Thought Process & Associations: Intact Thought Content: Appropriate Hallucination Type: None Delusion Type: None Suicidal Ideation: No Suicidal Plan: No Suicidal Intention: No Homicidal Ideation: No Homicidal Plan: No Homicidal Intention: No Insight: Adequate Judgment: Adequate Results Labs Date/Time Source Procedure Growth Status 05/11/17 04:05 Urine Clean Catch Urine Culture - Final 50-100,000 CFU/ML MIXED GRAM POSITIVE... Complete Vitals/IOs Vital Signs Date Time Temp Pulse Resp B/P (MAP) Pulse Ox O2 Delivery O2 Flow Rate FiO2 05/14/17 06:02 98.1 61 16 155/94 (114) 97 05/11/17 12:44 Room Air Assessment & Plan Problem List: (1) DEMENTIA IN OTH DISEASES CLASSD ELSWHR W BEHAVIORAL DISTURB ICD Codes: F02.81 - DEMENTIA IN OTH DISEASES CLASSD ELSWHR W BEHAVIORAL DISTURB (2) OTHER ALZHEIMER'S DISEASE ICD Codes: G30.8 - OTHER ALZHEIMER'S DISEASE Assessment & Plan Continue current tx plan. Estimated LOS: days Justification for Cont. Inpt. risk of decompensation Cristina Eaton MD May 14, 2017 16:11
[2017-05-14 18:00] VITALS: BP 183/72; PULSE 61; RESP 18; TEMP 97; O2SAT 99
[2017-05-14] MEDS: DIVALPROEX SODIUM E.R. 250 MG TAB PO SCH (21:29)
[2017-05-15 06:01] VITALS: BP 160/72; PULSE 63; RESP 16; TEMP 97.6; O2SAT 95
[2017-05-15] MEDS: NICOTINE 21 MG/24 HR PATCH T-DERMAL SCH (09:00)
[2017-05-15] MEDS: CARBIDOPA/LEVODOPA 10 MG/100 MG TAB PO SCH ×3 (09:00→18:00)
[2017-05-15] MEDS: REMOVE OLD PATCH T-DERMAL SCH (09:00)
[2017-05-15] MEDS: amLODIPine BESYLATE 5 MG TAB PO SCH (09:26)
[2017-05-15] MEDS: DICLOFENAC SODIUM 75 MG DELAYED RELEASE TAB PO SCH (09:27)
[2017-05-15] MEDS: METOPROLOL TARTRATE 50 MG TAB PO SCH ×2 (09:27→18:08)
[2017-05-15] MEDS: busPIRone HCL 10 MG TAB PO SCH ×2 (09:27→20:39)
--- NOTE | 2017-05-15 14:52 | HHI.PYPN ---
Subjective Remarks Pt seen and discussed with staff. She has been compliant with medications. She has been less confused today per staff. She processed feelings about of boyfriend with RN. No SI/HI. No behavioral problems. Mental Status Examination Appearance: Appropriate Consciousness: Alert Orientation: Person, Place, Date/Time Motor Activity: Normal gait Speech: Unremarkable Language: Adequate Fund of Knowledge: Adequate Attention and Concentration: Adequate Memory: Impaired Mood: Appropriate Affect: Appropriate Thought Process & Associations: Intact Thought Content: Appropriate Hallucination Type: None Delusion Type: None Suicidal Ideation: No Suicidal Plan: No Suicidal Intention: No Homicidal Ideation: No Homicidal Plan: No Homicidal Intention: No Insight: Adequate Judgment: Adequate Results Labs Date/Time Source Procedure Growth Status 05/11/17 04:05 Urine Clean Catch Urine Culture - Final 50-100,000 CFU/ML MIXED GRAM POSITIVE... Complete Vitals/IOs Vital Signs Date Time Temp Pulse Resp B/P (MAP) Pulse Ox O2 Delivery O2 Flow Rate FiO2 05/15/17 06:01 97.6 63 16 160/72 (101) 95 05/11/17 12:44 Room Air Assessment & Plan Problem List: (1) DEMENTIA IN OTH DISEASES CLASSD ELSWHR W BEHAVIORAL DISTURB ICD Codes: F02.81 - DEMENTIA IN OTH DISEASES CLASSD ELSWHR W BEHAVIORAL DISTURB (2) OTHER ALZHEIMER'S DISEASE ICD Codes: G30.8 - OTHER ALZHEIMER'S DISEASE Assessment & Plan Continue current tx plan Estimated LOS: days Justification for Cont. Inpt. risk of decompensation Cristina Eaton MD May 15, 2017 14:52
[2017-05-15 18:00] VITALS: BP 181/83; PULSE 60; RESP 17; TEMP 97.3; O2SAT 96
[2017-05-15] MEDS: DIVALPROEX SODIUM E.R. 250 MG TAB PO SCH (20:39)
[2017-05-16 01:44] VITALS: BP 141/65; PULSE 59
[2017-05-16] MEDS: amLODIPine BESYLATE 5 MG TAB PO SCH (08:17)
[2017-05-16] MEDS: DICLOFENAC SODIUM 75 MG DELAYED RELEASE TAB PO SCH (08:17)
[2017-05-16] MEDS: METOPROLOL TARTRATE 50 MG TAB PO SCH ×2 (08:17→21:48)
[2017-05-16] MEDS: CARBIDOPA/LEVODOPA 10 MG/100 MG TAB PO SCH ×3 (08:17→17:04)
[2017-05-16] MEDS: busPIRone HCL 10 MG TAB PO SCH ×2 (08:17→21:47)
[2017-05-16] MEDS: NICOTINE 21 MG/24 HR PATCH T-DERMAL SCH (08:18)
[2017-05-16] MEDS: REMOVE OLD PATCH T-DERMAL SCH (08:18)
--- NOTE | 2017-05-16 09:57 | PD.TTN ---
Patient Problems 1. Discharge planning 2. Medication compliance 3. Knowledge deficit 4. Lack of coping skills Progress Toward Goals Provider Present: Dr. Ronal Casanova Provider Input: Family attempting to find placement. We need to set limits with pt, to ensure pt is placed jimmy. Nurse(s) Input: not present Psychiatric Counselors Present: Angeline [facility], [facility], Gustavo Caballero Jr., [facility] [[email or web address]], Yina Hemphill, [facility] Psych Therapist Input: I will check to see if we have permission to speak with family, and help to seek pt placement Group Spec/RT/OT/NUÑEZ Input: none Occupational Therapist Input: not present Gustavo Caballero Jr, [employer] May 16, 2017 09:57
--- NOTE | 2017-05-16 12:06 | HHI.PYPN ---
Subjective Remarks Patient seen in her room with nurse Martin, chart reviewed, patient compliant medication. Discussed with patient her need to work on placement issues. Her mood is stabilizing. She does denies suicidality voices or visions at this time. It appears her performance extended family did make arrangements for her to stay with the mother older woman but appears the patient is not very excited about that option. Patient advised the need for expeditious finding of a placement for her Review of Systems Except as stated in HPI: all other systems reviewed are Neg Mental Status Examination Appearance: Appropriate Consciousness: Alert Orientation: Person, Place, Date/Time Motor Activity: Normal gait Speech: Unremarkable Language: Adequate Fund of Knowledge: Adequate Attention and Concentration: Adequate Memory: Impaired Mood: Appropriate Affect: Appropriate Thought Process & Associations: Intact Thought Content: Appropriate Hallucination Type: None Delusion Type: None Suicidal Ideation: No Suicidal Plan: No Suicidal Intention: No Homicidal Ideation: No Homicidal Plan: No Homicidal Intention: No Insight: Adequate Judgment: Adequate Results Labs Date/Time Source Procedure Growth Status 05/11/17 04:05 Urine Clean Catch Urine Culture - Final 50-100,000 CFU/ML MIXED GRAM POSITIVE... Complete Vitals/IOs Vital Signs Date Time Temp Pulse Resp B/P (MAP) Pulse Ox O2 Delivery O2 Flow Rate FiO2 05/16/17 01:44 59 141/65 (90) 05/15/17 18:00 97.3 17 96 Assessment & Plan Problem List: (1) DEMENTIA IN OTH DISEASES CLASSD ELSWHR W BEHAVIORAL DISTURB ICD Codes: F02.81 - DEMENTIA IN OTH DISEASES CLASSD ELSWHR W BEHAVIORAL DISTURB (2) OTHER ALZHEIMER'S DISEASE ICD Codes: G30.8 - OTHER ALZHEIMER'S DISEASE Assessment & Plan Estimated LOS: days patient now denying suicidality homicidality voices or visions. All she remains at times mildly confused she overall is express herself well. Need to encourage continue her working with finding an appropriate placement Justification for Cont. Inpt. At this time patient would decompensate the placed in a lower level of care Discharge Planning Need to verify placement options for this lady Johann Casanova MD May 16, 2017 12:06
--- NOTE | 2017-05-16 14:04 | PD.PN.STU ---
Subjective Remarks Patient is a 72 yo F with a PMH of GERD, Parkinson's, bipolar, HTN, chronic back pain who was admitted to psychiatric care for dementia with behavioral disturbance. The hospitalist team was reconsulted today for frequent emesis. Since her admission to the hospital, the vomiting has occurred 1-2x daily and after meals. The vomit is mostly undigested food with occasional foul smell and greenish coloration. There is no hematemesis or associated abd pain, bloating, heartburn, diarrhea, or other reported sx. IM Zofran given 05/12 and 05/13 to some relief. Patient otherwise feels well.The patient states that she often has difficulty keeping food down when she is stressed and that this has been happening occasionally for the past year. These episodes are usually associated with diarrhea and nausea at the appearance of food. Does have h/o of cholestectomy, appendectomy, and hysterectomy all years ago. Per nurse, this history is consistent with nursing staff observations. Also states that home omeprazole has been held for unknown reasons. Will give milk of magnesia today as patient has not had a bowel movement in 2 days. Objective Vitals Vital Signs Date Time Temp Pulse Resp B/P (MAP) Pulse Ox O2 Delivery O2 Flow Rate FiO2 05/16/17 01:44 59 141/65 (90) 05/15/17 18:00 97.3 60 17 181/83 (115) 96 Result Diagram: 05/12/17 1010 Objective Remarks GENERAL: Patient alert, awake, pleasant, sitting at edge of bed. SKIN: Warm and dry. HEAD: Atraumatic. Normocephalic. EYES: Pupils equal and round. No scleral icterus. No injection or drainage. ENT: No nasal bleeding or discharge. Mucous membranes pink and moist. NECK: Trachea midline. No JVD. CARDIOVASCULAR: Regular rate and rhythm. RESPIRATORY: No accessory muscle use. Clear to auscultation. Breath sounds equal bilaterally. GASTROINTESTINAL: Abdomen soft, nondistended. Hepatic and splenic margins not palpable. Mild tenderness to deep palpation of the epigastric region with no guarding or rebound. MUSCULOSKELETAL: Extremities without clubbing, cyanosis, or edema. No obvious deformities. NEUROLOGICAL: Awake and alert. No obvious cranial nerve deficits. Motor grossly within normal limits. Normal speech. PSYCHIATRIC: Appropriate mood and affect; insight and judgment normal. Medications and IVs Current Medications Trimethoprim/ Sulfamethoxazole (Bactrim Ds 800-160 Mg) 1 tab ONCE ONCE PO Last administered on 05/11/17 07:38; Start 05/11/17 at 07:00; Stop 05/11/17 at 07:01; Status DC Lorazepam (Ativan) 1 mg Q6H PRN PO MODERATE TO SEVERE ANXIETY Last administered on 05/15/17 21:53; Start 05/11/17 at 09:00 Lorazepam (Ativan Inj) 1 mg Q6H PRN IM MODERATE TO SEVERE ANXIETY; Start 05/11 at 09:00 Lorazepam (Ativan) 0.5 mg Q12H PRN PO MILD TO MODERATE ANXIETY; Start at 09:00 Lorazepam (Ativan Inj) 0.5 mg Q12H PRN IM MILD TO MODERATE ANXIETY; Start at 09:00 Acetaminophen (Tylenol) 650 mg Q4H PRN PO Pain 1-5 or Temp >101F Last administered on 05/14/17 10:12; Start 05/11/17 at 09:00 Magnesium Hydroxide (Milk Of Magnesia Liq) 30 ml DAILY PRN PO CONSTIPATION; Start 05/11/17 at 09:00 Al Hydrox/Mg Hydrox/Simethicone (Mag-Al Plus Susp Liq) 30 ml Q6H PRN PO DYSPEPSIA; Start 05/11/17 at 09:00 Nicotine (Habitrol 21 Mg Patch.24 Hr) 1 patch DAILY T-DERMAL ; Start 05/11/17 at 11:00 Buspirone HCl (Buspar) 10 mg BID PO Last administered on 05/16/17 08:17; Start 05/11/17 at 10:46 Carbidopa/Levodopa (Sinemet 10-100 Mg) 1 tab TID PO Last administered on 12:54; Start 05/11/17 at 13:00 Divalproex Sodium (Depakote Er) 250 mg HS PO Last administered on 05/15/17 20: 39; Start 05/11/17 at 21:00 Metoprolol Tartrate (Lopressor) 50 mg BID PO Last administered on 05/16/17 08: 17; Start 05/11/17 at 11:00 Trimethoprim/ Sulfamethoxazole (Bactrim Ds 800-160 Mg) 1 tab BID PO Last administered on 05/14/17 08:44; Start 05/11/17 at 21:00; Stop 05/14/17 at 20: 59; Status DC Diclofenac Sodium (Voltaren Dr) 75 mg DAILY PO Last administered on 05/16/17 08:17; Start 05/11/17 at 11:00 Patient Own Medication PT OWN MED: OMEPRAZ... DAILY PO ; Start 05/11/17 at 12: 45; Status Future Hold Miscellaneous Information 1 DAILY T-DERMAL ; Start 05/12/17 at 09:00 Amlodipine Besylate (Norvasc) 5 mg DAILY PO Last administered on 05/16/17 08: 17; Start 05/12/17 at 09:00 Ondansetron HCl (Zofran Inj) 4 mg STK-MED ONCE .ROUTE ; Start 05/12/17 at 13:13 ; Stop 05/12/17 at 13:14; Status DC Ondansetron HCl (Zofran Inj) 4 mg ONCE STAT IM Last administered on 13:13; Start 05/12/17 at 13:13; Stop 05/12/17 at 13:22; Status DC Ondansetron HCl (Zofran Inj) 4 mg STK-MED ONCE .ROUTE Last administered on 05/13 14:33; Start 05/13/17 at 14:33; Stop 05/13/17 at 14:34; Status DC A/P Assessment and Plan Patient is a 72 yo F with a PMH of GERD, Parkinson's, bipolar, HTN, chronic back pain who was admitted to psychiatric care for dementia with behavioral disturbance. The hospitalist team was reconsulted today for frequent emesis. Dementia with behavioral disturbances: Management per psychiatry. GERD: -Consider resuming home omeprazole. Hypertension: - Continue metoprolol and amlodipine. Still elevated at times although would not want to drop DBP too low. Consider increasing amlodipine. Parkinson's: Continue Sinemet Chronic back pain: Continue home dose baclofen. Billy Snowden May 16, 2017 14:04
[2017-05-16] MEDS ORDERED: ACETAMINOPHEN/HYDROcodone 325 MG/5 MG TAB PO PRN (14:30)
[2017-05-16] MEDS: PANTOPRAZOLE SOD 40 MG DELAYED RELEASE TAB PO SCH (14:41)
[2017-05-16] MEDS ORDERED: ONDANSETRON ODT 4 MG TAB PO PRN (14:45)
--- NOTE | 2017-05-16 16:59 | HHI.PR ---
Subjective Remarks Reconsulted for recurrent emesis. Patient reports she always get nausea and vomiting whenever her stress levels are too high. Objective Vitals Vital Signs Date Time Temp Pulse Resp B/P (MAP) Pulse Ox O2 Delivery O2 Flow Rate FiO2 05/16/17 01:44 59 141/65 (90) 05/15/17 18:00 97.3 60 17 181/83 (115) 96 Result Diagram: 05/12/17 1010 Objective Remarks GENERAL: No acute distress CARDIOVASCULAR: Regular rate and rhythm. RESPIRATORY: No accessory muscle use. Clear to auscultation. Breath sounds equal bilaterally. GASTROINTESTINAL: Abdomen soft, mild tenderness to deep palpation in the mid epigastric region. MUSCULOSKELETAL: Extremities without clubbing, cyanosis, or edema. No obvious deformities. NEUROLOGICAL: Awake and alert. No obvious cranial nerve deficits. Motor grossly within normal limits. Five out of 5 muscle strength in the arms and legs. Normal speech. PSYCHIATRIC: Appropriate mood and affect; insight and judgment normal. A/P Problem List: (1) Dementia ICD Code: F03.90 - Unspecified dementia without behavioral disturbance (2) Hypertension ICD Code: I10 - Essential (primary) hypertension (3) UTI (urinary tract infection) ICD Code: N39.0 - Urinary tract infection, site not specified (4) Depressed ICD Code: F32.9 - Major depressive disorder, single episode, unspecified Assessment and Plan 72-year-old female admitted to the psychiatric unit for dementia with behavioral disturbances Dementia with behavioral disturbances: Management per psychiatry. Recurrent emesis: Patient reports it only happens with increased stress. No vomiting today. She does have a history of GERD and also has been taking baclofen chronically for pain. She may have gastritis - Will start Protonix. Stop baclofen. - Outpatient follow up to GI is advised Hypertension: - Resume metoprolol. Still elevated. Increase amlodipine to 10 mg daily. Parkinson's: Continue Sinemet Chronic back pain: Discontinue baclofen given GI symptoms. Add Lortab as needed for severe pain. Problem Qualifiers (1) Dementia: Damari Gallegos MD May 16, 2017 16:59
[2017-05-16 18:00] VITALS: BP 150/91; PULSE 69; RESP 16; TEMP 97.5; O2SAT 98
[2017-05-16] MEDS: DIVALPROEX SODIUM E.R. 250 MG TAB PO SCH (21:48)
[2017-05-17 06:12] VITALS: BP 149/86; PULSE 72; RESP 16; TEMP 97.4; O2SAT 98
[2017-05-17] MEDS: METOPROLOL TARTRATE 50 MG TAB PO SCH ×2 (08:24→21:06)
[2017-05-17] MEDS: amLODIPine BESYLATE 5 MG TAB PO SCH (08:24)
[2017-05-17] MEDS: PANTOPRAZOLE SOD 40 MG DELAYED RELEASE TAB PO SCH (08:24)
[2017-05-17] MEDS: busPIRone HCL 10 MG TAB PO SCH ×2 (08:24→21:06)
[2017-05-17] MEDS: CARBIDOPA/LEVODOPA 10 MG/100 MG TAB PO SCH ×3 (08:25→17:12)
[2017-05-17] MEDS: NICOTINE 21 MG/24 HR PATCH T-DERMAL SCH (08:25)
[2017-05-17] MEDS: REMOVE OLD PATCH T-DERMAL SCH (08:25)
[2017-05-17 09:07] LABS: ANION GAP 10 MEQ/L (5-15); AST (GOT) 23 U/L (15-37); BICARBONATE 25.3 MEQ/L (21.0-32.0); BLOOD UREA NITROGEN 23 MG/DL (7-18); CHLORIDE 104 MEQ/L (98-107); GLOMERULAR FILTRATION RATE 93 ML/MIN (>89); POTASSIUM 3.5 MEQ/L (3.5-5.1); SODIUM (NA) 139 MEQ/L (136-145)
[2017-05-17 09:12] LABS: ALKALINE PHOSPHATASE 89 U/L (45-117); ALT (GPT) 23 U/L (10-53); TOTAL BILIRUBIN ADULT 0.5 MG/DL (0.2-1.0)
--- NOTE | 2017-05-17 13:56 | HHI.PYPN ---
Subjective Remarks Patient seen in her room with nurse Bryan, chart reviewed, patient compliant medications. Patient denies suicidality homicidality voices or visions. Will continue some anxiety and trepidation related to placement issues. I did encourage her to be more proactive in contacting possible placements, extended family members that might be available. Patient states she will try harder with this Review of Systems Except as stated in HPI: all other systems reviewed are Neg Mental Status Examination Appearance: Appropriate Consciousness: Alert Orientation: Person, Place, Date/Time Motor Activity: Normal gait Speech: Unremarkable Language: Adequate Fund of Knowledge: Adequate Attention and Concentration: Adequate Memory: Impaired Mood: Appropriate Affect: Appropriate Thought Process & Associations: Intact Thought Content: Appropriate Hallucination Type: None Delusion Type: None Suicidal Ideation: No Suicidal Plan: No Suicidal Intention: No Homicidal Ideation: No Homicidal Plan: No Homicidal Intention: No Insight: Adequate Judgment: Adequate Results Labs Test 05/17/17 07:21 Blood Urea Nitrogen 23 MG/DL Creatinine 0.63 MG/DL Random Glucose 84 MG/DL Total Protein 7.4 GM/DL Albumin 3.8 GM/DL Calcium Level 9.5 MG/DL Alkaline Phosphatase 89 U/L Aspartate Amino Transf (AST/SGOT) 23 U/L Alanine Aminotransferase (ALT/SGPT) 23 U/L Total Bilirubin 0.5 MG/DL Sodium Level 139 MEQ/L Potassium Level 3.5 MEQ/L Chloride Level 104 MEQ/L Carbon Dioxide Level 25.3 MEQ/L Anion Gap 10 MEQ/L Estimat Glomerular Filtration Rate 93 ML/MIN Lipase 66 U/L Date/Time Source Procedure Growth Status 05/11/17 04:05 Urine Clean Catch Urine Culture - Final 50-100,000 CFU/ML MIXED GRAM POSITIVE... Complete Vitals/IOs Vital Signs Date Time Temp Pulse Resp B/P (MAP) Pulse Ox O2 Delivery O2 Flow Rate FiO2 05/17/17 06:12 97.4 72 16 149/86 (107) 98 Assessment & Plan Problem List: (1) DEMENTIA IN OTH DISEASES CLASSD ELSWHR W BEHAVIORAL DISTURB ICD Codes: F02.81 - DEMENTIA IN OTH DISEASES CLASSD ELSWHR W BEHAVIORAL DISTURB (2) OTHER ALZHEIMER'S DISEASE ICD Codes: G30.8 - OTHER ALZHEIMER'S DISEASE Assessment & Plan Estimated LOS: days patient continues calm cooperative at times mildly confused but overall no behavior problems, compliant medications. Justification for Cont. Inpt. At this time patient will decompensate if placed in a lower level of care Discharge Planning There continues to remain problems with placement family versus custodial type setting Johann Casanova MD May 17, 2017 13:56
[2017-05-17 18:21] VITALS: BP 145/86; PULSE 75; RESP 18; TEMP 98.2; O2SAT 98
[2017-05-17] MEDS: DIVALPROEX SODIUM E.R. 250 MG TAB PO SCH (21:06)
[2017-05-18 05:38] VITALS: BP 127/67; PULSE 66; RESP 17; TEMP 97.6; O2SAT 98
[2017-05-18] MEDS: REMOVE OLD PATCH T-DERMAL SCH (09:00)
[2017-05-18] MEDS: CARBIDOPA/LEVODOPA 10 MG/100 MG TAB PO SCH ×3 (09:00→17:52)
[2017-05-18] MEDS: NICOTINE 21 MG/24 HR PATCH T-DERMAL SCH (09:00)
[2017-05-18] MEDS: METOPROLOL TARTRATE 50 MG TAB PO SCH ×2 (09:17→21:44)
[2017-05-18] MEDS: PANTOPRAZOLE SOD 40 MG DELAYED RELEASE TAB PO SCH (09:18)
[2017-05-18] MEDS: amLODIPine BESYLATE 5 MG TAB PO SCH (09:19)
[2017-05-18] MEDS: busPIRone HCL 10 MG TAB PO SCH ×2 (09:20→21:44)
--- NOTE | 2017-05-18 13:07 | HHI.PYPN ---
Subjective Remarks Patient seen in [place] with nurse Renata, patient calm cooperative this vaguely confused however her focus is improving. She now is quite willing to [facility]. At this time patient does not meet criteria for involuntary hospitalization. Thus I'll lift the Paredes act allow the patient to sign voluntary. Review of Systems Except as stated in HPI: all other systems reviewed are Neg Mental Status Examination Appearance: Appropriate Consciousness: Alert Orientation: Person, Place, Date/Time Motor Activity: Normal gait Speech: Unremarkable Language: Adequate Fund of Knowledge: Adequate Attention and Concentration: Adequate Memory: Impaired Mood: Appropriate Affect: Appropriate Thought Process & Associations: Intact Thought Content: Appropriate Hallucination Type: None Delusion Type: None Suicidal Ideation: No Suicidal Plan: No Suicidal Intention: No Homicidal Ideation: No Homicidal Plan: No Homicidal Intention: No Insight: Adequate Judgment: Adequate Results Labs Date/Time Source Procedure Growth Status 05/11/17 04:05 Urine Clean Catch Urine Culture - Final 50-100,000 CFU/ML MIXED GRAM POSITIVE... Complete Vitals/IOs Vital Signs Date Time Temp Pulse Resp B/P (MAP) Pulse Ox O2 Delivery O2 Flow Rate FiO2 05/18/17 05:38 97.6 66 17 127/67 (87) 98 Assessment & Plan Problem List: (1) DEMENTIA IN OTH DISEASES CLASSD ELSWHR W BEHAVIORAL DISTURB ICD Codes: F02.81 - DEMENTIA IN OTH DISEASES CLASSD ELSWHR W BEHAVIORAL DISTURB (2) OTHER ALZHEIMER'S DISEASE ICD Codes: G30.8 - OTHER ALZHEIMER'S DISEASE Assessment & Plan Estimated LOS: days patient no able to sign voluntary will lift Paredes act will outpatient sign voluntary. Patient compliant medications. Appears willing now to consider an [facility] placement Justification for Cont. Inpt. At this time patient will decompensate then placed a lower level of care Discharge Planning The tourniquet patient for placement in [facility] Johann Casanova MD May 18, 2017 13:07
--- NOTE | 2017-05-18 14:58 | HHI.PR ---
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 who recently passed and left everything to his family up and ambulating appears tearful but seem like she is realistic with her current situation- in between homes Objective Vitals Vital Signs Date Time Temp Pulse Resp B/P (MAP) Pulse Ox O2 Delivery O2 Flow Rate FiO2 05/18/17 05:38 97.6 66 17 127/67 (87) 98 05/17/17 18:21 98.2 75 18 145/86 (105) 98 Result Diagram: 05/17/17 0721 Objective Remarks awake and alert, oriented x 3, appears depressed anciteric lungs clear regular rhythm abdomen- globularly soft, nontender extremities no edema A/P Problem List: (1) Dementia ICD Code: F03.90 - Unspecified dementia without behavioral disturbance (2) Hypertension ICD Code: I10 - Essential (primary) hypertension (3) UTI (urinary tract infection) ICD Code: N39.0 - Urinary tract infection, site not specified (4) Depressed ICD Code: F32.9 - Major depressive disorder, single episode, unspecified Assessment and Plan 72-year-old female admitted to the psychiatric unit for dementia with behavioral disturbances Dementia with behavioral disturbances: Management per psychiatry. Recurrent emesis- resolved : Patient reports it only happens with increased stress. - continue PPI - requested for ensure- chocolate flavor- wrote for bid Hypertension: - Resume metoprolol. Still elevated. Amlodipine to 10 mg daily. Parkinson's: Continue Sinemet Chronic back pain: Discontinue baclofen given GI symptoms. Add Lortab as needed for severe pain. patient up and ambulating CM- ff for DC disposition Problem Qualifiers (1) Dementia: Ira Duggan MD May 18, 2017 14:58
[2017-05-18] MEDS: ACETAMINOPHEN 325 MG TAB PO PRN (15:40)
[2017-05-18 18:00] VITALS: BP 130/61; PULSE 60; RESP 16; TEMP 97.8; O2SAT 98
[2017-05-18] MEDS: DIVALPROEX SODIUM E.R. 250 MG TAB PO SCH (21:44)
[2017-05-18 23:08] LABS: BACTERIA, URINE RARE /hpf; BLOOD, URINE NEG (NEG); COMMENT (UR) CULTURE INDICATED; CULTURE IF INDICATED CULTURE INDICATED; GLUCOSE,URINE NEG (NEG); KETONE, URINE 10 mg/dL (NEG); MUCUS URINE MOD /lpf (OCC); NITRITE,URINE NEG (NEG); SQUAMOUS EPITHELIAL CELL URINE <1 /hpf (0-5); URINE COLOR YELLOW (YELLW/STRAW)
[2017-05-19 05:59] VITALS: BP 136/73; PULSE 73; RESP 17; TEMP 97.6; O2SAT 97
[2017-05-19] MEDS: PANTOPRAZOLE SOD 40 MG DELAYED RELEASE TAB PO SCH (08:33)
[2017-05-19] MEDS: CARBIDOPA/LEVODOPA 10 MG/100 MG TAB PO SCH (08:33)
[2017-05-19] MEDS: busPIRone HCL 10 MG TAB PO SCH (08:33)
[2017-05-19] MEDS: amLODIPine BESYLATE 5 MG TAB PO SCH (08:33)
[2017-05-19] MEDS: METOPROLOL TARTRATE 50 MG TAB PO SCH (08:33)
[2017-05-19] MEDS: REMOVE OLD PATCH T-DERMAL SCH (08:34)
[2017-05-19] MEDS: NICOTINE 21 MG/24 HR PATCH T-DERMAL SCH (08:34)
[2017-05-19] MEDS ORDERED: AMLO10TA2 PO (10:19)
[2017-05-19] MEDS ORDERED: PANT40TA3 PO (10:19)
[2017-05-19] MEDS ORDERED: BUSP10TA PO (10:19)
[2017-05-19] MEDS ORDERED: DICL75TA PO (10:19)
[2017-05-19] MEDS ORDERED: METO-309 PO (10:19)
[2017-05-19] MEDS ORDERED: SINE10100 PO (10:19)
[2017-05-19] MEDS ORDERED: DIVA250ER PO (10:19)
--- NOTE | 2017-05-19 10:24 | HHI.DS ---
Psychiatry Discharge Summary Inpatient Psychiatric care?: Yes Advance Directive: No Reason Not Provided: Patient declined Mental Health AdvanceDirective: No Health Care Proxy: No Admission Admission Date May 11, 2017 at 08:49 Admission Diagnosis: (1) OTHER ALZHEIMER'S DISEASE ICD Code: G30.8 - OTHER ALZHEIMER'S DISEASE (2) DEMENTIA IN OTH DISEASES CLASSD ELSWHR W BEHAVIORAL DISTURB ICD Code: F02.81 - DEMENTIA IN OTH DISEASES CLASSD ELSWHR W BEHAVIORAL DISTURB Brief History The patient is a 72-year-old woman, held alone in [place], , with psychiatric history of depression, anxiety and bipolar disorder, 2 previous psychiatric hospitalizations, 2 previous suicidal attempts, she is currently go 250 mg twice a day, buspirone 20 mg 3 times a day, prescribed by PCP, she has medical history of Parkinson's disease, hypertension, who presents to emergency department under Paredes act by PD. According to the Paredes act the patient has been driving around for last 2 days and appears to be confused and lost. o. She has no money except for small amount of Social Security. She states that she used to live a life, as her father would say "a hippcurly". She states that she used to drink alcohol and do drugs but she has been sober and drug free for many years. She has quit smoking. Patient They were concerned that the patient is developing early dementia. The patient here states that she is from [facility]. Her partner just approximately one week ago due to complications of alcohol abuse. Family members are in the process of evicting her. She has nowhere to report having a similar episode of driving around in the past. She states that she did not have any plans on going anywhere in particular but gotten her car and started driving. She states that she eventually ran out of gas. States that she has not been eating right. She states that she's not sure where she is currently and did not have any plans on going anywhere particular. Chart was reviewed, patient was seen for psychiatric elevation in [facility] along with nurse in charge Jimmy. Patient is calm, cooperative about pleasantly confused. Patient says that she knows that she is in the hospital, but she doesn't know where. He knows that she was stopped by the police when she was driving to [place] "even though I don't even know what is the reason he was going to [place]". She says that her car stop without gas in the highway. She reports depressed mood due to her current situation. But she denies hopelessness, helplessness, worthlessness, patient denies suicidal and homicidal ideation, she denies visual and auditory hallucinations. Patient does not know the date, the florist manager, he was able to repeat 3 words, but unable to recall in 5 minutes later. Patient says that her major problem right now is that she does not know what to do, since she was just evicted from her house and she doesn't even know where her car is. The patient has a daughter, but she doesn't remember her telephone number. She gave me the telephone number of her friend Chelle, [phone], but unfortunately he could not reach her this morning. The patient denies the use of alcohol and illicit drugs. 05/11 17 Above note dictated by Dr. Tidwell reviewed and agreed with. Patient seen in dayroom with floor staff. Patient appears to be showing some improvement in her orientation her mood and her memory. Though she still has some black spots relating her driving to self [place] and back. She denies though somewhat vague about suicidality. Dr. Tidwell has done first opinion petition supporting Paredes act. I agree. Patient meets criteria for involuntary psychiatric hospitalization under the Paredes act. Thus will cosign second opinion petition supporting Paredes act Tobacco Use In Past 30 Days: No Tobacco Past 30 Days Alcohol Use: Never Hospital Course Patient's hospital course was uneventful, patient showed no behavioral issues, very confusion disorientation persisted though she showed some improvement in her processing. She is no behavior problems on the unit was able care of herself without difficulty. The initial placement anticipations fell through. However we have found a placement for this lady at [facility] in [place]. At this time patient denies suicidality homicidality voices or visions she is aware of the placement approves of the placement of making appropriate efforts to locate her vehicle in a possessions. Thus at this time patient has reached maximum benefit of this hospitalization she'll be discharged herself referral to [facility], follow-up mental health services through that facility she'll be given Rx 1 month Results Blood Pressure 136 / 73 Vital Signs Date Time Temp Pulse Resp B/P (MAP) Pulse Ox O2 Delivery O2 Flow Rate FiO2 05/19/17 05:59 97.6 73 17 136/73 (94) 97 Laboratory Tests Test 05/17/17 07:21 05/18/17 22:10 Blood Urea Nitrogen 23 MG/DL (7-18) Lipase 66 U/L (73-393) Urine Ketones 10 mg/dL (NEG) Urine Leukocyte Esterase LARGE (NEG) Urine WBC 37 /hpf (0-5) Urine Bacteria RARE /hpf (NONE) Urine Mucus MOD /lpf (OCC) Laboratory Results Test 05/11/17 02:30 05/12/17 10:10 Valproic Acid (Depakene) Level 26 MCG/ML (50-100) Cholesterol Level 222 MG/DL (120-200) HDL Cholesterol 37.0 MG/DL (40.0-60.0) Hemoglobin A1c 5.0 % (4.3-6.0) LDL Cholesterol 125 MG/DL (0-99) Triglycerides Level 300 MG/DL (42-150) Summary of Procedures None done Pending results at discharge: No Medications # of Antipsychotic meds at D/C: 0 Approp Antipsych med options 1 - Minimum of three failed multiple trials of monotherapy. 2 - Documented plan to taper to monotherapy due to previous use of multiple meds OR cross-taper in progress at D/C. 3 - Documentation of augmentation of Clozapine. 4 - Justification other than those listed in allowable values 1-3, document here : Discharge Discharge Date: May 19, 2017 Discharge Diagnosis: (1) OTHER ALZHEIMER'S DISEASE Diagnosis: Principal ICD Code: G30.8 - OTHER ALZHEIMER'S DISEASE (2) DEMENTIA IN OTH DISEASES CLASSD ELSWHR W BEHAVIORAL DISTURB Diagnosis: Principal ICD Code: F02.81 - DEMENTIA IN OTH DISEASES CLASSD ELSWHR W BEHAVIORAL DISTURB Pt Condition on Discharge: Stable Discharge Disposition: ACLF/FDC Discharge Instructions Diet Instructions: As Tolerated, No Restrictions Activities you can perform: Regular-No Restrictions Scheduled Appointment: [facility] in [place], follow-up mental health services at that facility Discharge Time > 30 minutes Mental Status Examination Appearance: Appropriate Consciousness: Alert Orientation: Person, Place, Date/Time Motor Activity: Normal gait Speech: Unremarkable Language: Adequate Fund of Knowledge: Adequate Attention and Concentration: Adequate Memory: Impaired Mood: Appropriate Affect: Appropriate Thought Process & Associations: Intact Thought Content: Appropriate Hallucination Type: None Delusion Type: None Suicidal Ideation: No Suicidal Plan: No Suicidal Intention: No Homicidal Ideation: No Homicidal Plan: No Homicidal Intention: No Insight: Adequate Judgment: Adequate Discharge/Advance Care Plan Health Problems: (1) DEMENTIA IN OTH DISEASES CLASSD ELSWHR W BEHAVIORAL DISTURB (2) OTHER ALZHEIMER'S DISEASE Goals to promote your health * To prevent worsening of your condition and complications * To maintain your health at the optimal level Directions to meet your goals Take your medications as prescribed Follow your dietary instruction Follow activity as directed Keep your appointments as scheduled Take your immunizations and boosters as scheduled If your symptoms worsen call your PCP, if no PCP go to Urgent Care Center or Emergency Room For 03/01 questions related to your inpatient stay or results of tests pending at discharge, please contact Dr. Johann Casanova at Smoking is Dangerous to Your Health. Avoid second hand smoking Johann Casanova MD May 19, 2017 10:24
[2017-05-19] MEDS: ACETAMINOPHEN 325 MG TAB PO PRN (11:03)
== END 2017-05-19 15:20 | DRG 57 ==
LOC: NEPD 01:50 → NEDA 08:49 → H260 12:20
PROVIDERS: ADMIT Psychiatry & Neurology Psychiatry; ATTEND Psychiatry & Neurology Psychiatry
DX: G30.8 Other Alzheimer's disease (principal); F02.81 Dementia in other diseases classified elsewhere, unspecified severity, with behavioral disturbance; G20 Parkinson's disease; N39.0 Urinary tract infection, site not specified; I10 Essential (primary) hypertension; F31.9 Bipolar disorder, unspecified; F43.23 Adjustment disorder with mixed anxiety and depressed mood; G89.29 Other chronic pain; M54.9 Dorsalgia, unspecified; Z96.642 Presence of left artificial hip joint; R11.2 Nausea with vomiting, unspecified; K21.9 Gastro-esophageal reflux disease without esophagitis; Z87.891 Personal history of nicotine dependence; Z91.5 Personal history of self-harm; Z91.83 Wandering in diseases classified elsewhere
CPT/HCPCS: 80048; 80053; 80061; 80164; 80307; 81001; 83036; 83690; 84439; 84443; 85025; 87086; 99285; J2405

== ENCOUNTER 2018-01-17 21:38 | Observation (INO) ==
[2018-01-17] MEDS ORDERED: Sod Chloride 0.9% Inj 1,000 ML IV.CONT SCH (22:45)
--- NOTE | 2018-01-17 22:46 | ED ---
HPI General Chief complaint: Neuro Symptoms/Deficit Stated complaint: AMS Time Seen by Provider: 01/17/18 22:41 Source: patient Mode of arrival: EMS Limitations: no limitations History of Present Illness HPI narrative: Patient complains of episode of memory loss, denies any actual numbness or lateralizing weakness to either side face's or slurred speech... Per friends apparently the patient had an episode of confusion which the patient herself does not recall. Per the friends she was confused for several hours and then had an episode of nausea and vomiting. Patient denied having any recollection of this. Per friends she did not have any tonic-clonic type activity she did not fall she did not have any other complaints. Patient did not denies having any complaints of headache chest pain shortness of breath or abdominal pain or cramping. Radiation: non-radiation Severity: mild Relieving factors: none Exacerbating factors: none Treatments prior to arrival: none Related Data Home Medications Medication Instructions Recorded Confirmed ascorbic acid (vitamin C) [Vitamin 500 mg PO BID 01/17/18 01/17/18 C] benztropine 1 mg PO BID 01/17/18 01/17/18 buspirone 10 mg PO BID 01/17/18 01/17/18 calcium carbonate [Calcium 600] 600 mg PO DAILY 01/17/18 01/17/18 carbidopa-levodopa 1 tab PO TID 01/17/18 01/17/18 diclofenac sodium 75 mg PO DAILY 01/17/18 01/17/18 metoprolol tartrate 50 mg PO BID 01/17/18 01/17/18 omeprazole 20 mg PO DAILY 01/17/18 01/17/18 venlafaxine 225 mg PO DAILY 01/17/18 01/17/18 Allergies Allergy/AdvReac Type Severity Reaction Status Date / Time No Known Allergies Allergy Verified 01/17/18 22:12 Review of Systems ROS: all other systems reviewed are negative PMFSH History History Provided By: Patient Medical History Medical History Anxiety (Acute) Bilateral artificial lens implant (Acute) FH: cholecystectomy (Acute) H/O: hysterectomy (Acute) HTN (hypertension) (Acute) Major depressive disorder (Acute) Parkinsons disease (Acute) Surgical History Surgical History Hx of breast reduction, elective (Acute) Social History Social History Substance History: No History of Abuse Second Hand Smoke Exposure: No Smoking Status: Former smoker Tobacco Type: Cigarettes How Often Do You Have a Drink Containing Alcohol: Monthly or less Recent Travel in [facility] within the Last 8 Weeks: No Recent Out of Country Travel within the Last 8 Weeks: No Immunization History Tetanus Immunization: Unsure Hx Influenza Vaccine This Season: Yes Exam Narrative Exam Narrative: GENERAL: Well-nourished, well-developed patient in no apparent distress. SKIN: Warm and dry. HEAD: Atraumatic. Normocephalic. EYES: Pupils equal and round. No scleral icterus. No injection or drainage. ENT: No nasal bleeding or discharge. Mucous membranes pink and moist. NECK: Trachea midline. No JVD. CARDIOVASCULAR: Regular rate and rhythm. no rubs or gallops RESPIRATORY: No accessory muscle use. Clear to auscultation. Breath sounds equal bilaterally. GASTROINTESTINAL: Abdomen soft, non-tender, nondistended. No rebound or guarding MUSCULOSKELETAL: Extremities without clubbing, cyanosis, or edema. No obvious deformities. NEUROLOGICAL: Awake and alert. No obvious cranial nerve deficits. Motor grossly within normal limits. Five out of 5 muscle strength in the arms and legs. Normal speech. PSYCHIATRIC: Appropriate mood and affect; insight and judgment normal. Course Initial Documented Vital Signs Temperature 98.4 F 01/17/18 21:59 Pulse Rate 59 L 01/17/18 21:59 Respiratory Rate 18 01/17/18 21:59 Blood Pressure 181/91 H 01/17/18 21:59 Last Documented Vital Signs Temperature 98.4 F 01/17/18 21:59 Pulse Rate 63 01/17/18 23:32 Respiratory Rate 18 01/17/18 23:32 Blood Pressure 200/91 H 01/17/18 23:32 Pulse Oximetry 97 01/17/18 23:32 NIH Stroke Scale NIH Stroke Scale Level of Consciousness: 0-Alert Orientation Questions: 0-Answers both correct Responds to Commands: 0-Both tasks correct Gaze Eye Movement: 0-Horizontal movement WNL Visual Burch: 0-No visual field defect Facial Movement: 0-Normal Motor Functions Arm LEFT: 0-No drift Motor Functions Arm RIGHT: 0-No drift Motor Functions Leg LEFT: 0-No drift Motor Functions Leg RIGHT: 0-No drift Limb Ataxia: 0-No ataxia Sensory Loss: 0-No sensory loss Best Language: 0-Normal Articulation: 0-Normal Extinction or Inattention Sensory: 0-Absent Total: 0 Medical Decision Making MDM Narrative Medical decision making narrative: CBC interpretation shows no leukocytosis, no anemia, no left shift, and normal platelet count Coagulation profile is within normal limits Electrolytes are all within the patient discussed normal liver functions and kidney function First set of cardiac enzymes negative Head CT read by radiologist as mild volume loss and atherosclerosis Chest x-ray read by radiologist shows cardiomegaly Differential Diagnosis Differential Diagnosis: Intracranial hemorrhage versus electrolyte abnormalities versus STEMI versus non-STEMI versus TIA Lab Data Lab results reviewed: Yes I reviewed the patient's lab results. Result diagrams: 01/17/18 22:55 01/17/18 22:55 Lab Results 01/17/18 01/17/18 01/17/18 Range/Units 22:55 22:55 22:55 CBC w Diff Auto diff final WBC 11.8 H (4.0-11.0) th/mm3 RBC 4.75 (4.00-5.30) mil/mm3 Hgb 12.9 (11.6-15.3) gm/dL Hct 38.8 (35.0-46.0) % MCV 81.7 (80.0-100.0) fL MCH 27.1 (27.0-34.0) pg MCHC 33.2 (32.0-36.0) % RDW 14.8 (11.6-17.2) % Plt Count 280 (150-450) th/mm3 MPV 6.5 L (7.0-11.0) fL Neut % (Auto) 73.4 H (16.0-70.0) % Lymph % (Auto) 16.7 (9.0-44.0) % Heard % (Auto) 5.0 (0.0-8.0) % Eos % (Auto) 0.7 (0.0-4.0) % Baso % (Auto) 4.2 H (0.0-2.0) % Neut # (Auto) 8.6 H (1.8-7.7) th/mm3 Lymph # (Auto) 2.0 (1.0-4.8) th/mm3 Heard # (Auto) 0.6 (0.0-0.9) th/mm3 Eos # (Auto) 0.1 (0.0-0.4) th/mm3 Baso # (Auto) 0.5 H (0.0-0.2) th/mm3 WBC Differential . Differential Comment . PT 10.1 (9.8-11.6) sec INR 1.0 Ratio APTT 24.3 (24.3-30.1) sec Sodium 141 (136-145) meq/L Potassium 3.6 (3.5-5.1) meq/L Chloride 103 (98-107) meq/L Carbon Dioxide 28.4 (21.0-32.0) meq/L Anion Gap 10 (5-15) meq/L BUN 26 H (7-18) mg/dL Creatinine 0.76 (0.50-1.00) mg/dL Estimated GFR 75 L (>89) mL/min POC Glucose (68-110) mg/dl Random Glucose 105 (74-106) mg/dL Calcium 9.3 (8.5-10.1) mg/dL Total Bilirubin 0.4 (0.2-1.0) mg/dL AST 9 L (15-37) U/L ALT 11 (10-53) U/L Alkaline Phosphatase 73 (45-117) U/L Total Creatine Kinase 68 (26-192) U/L Troponin I Less than 0.02 L (0.02-0.05) ng/mL Total Protein 7.5 (6.4-8.2) g/dL Albumin 4.1 (3.4-5.0) g/dL Urine Color (Yellw/Straw) Urine Clarity (Clear) Urine pH (5.0-8.5) Ur Specific [place] (1.002-1.035) Urine Protein (Neg-Trace) mg/dL Urine Glucose (UA) (Negative) mg/dL Urine Ketones (Negative) mg/dL Urine Occult Blood (Negative) Urine Nitrate (Negative) Urine Bilirubin (Negative) Urine Urobilinogen (Less than 2) mg/dL Ur Leukocyte Esterase (Negative) Urine RBC (0-3) /hpf Urine WBC (0-5) /hpf Ur Squamous Epith Cells (0-5) /hpf Urine Bacteria (None) /hpf Micro UA Comment Urine Culture Comments 01/17/18 01/17/18 Range/Units 23:10 23:25 CBC w Diff WBC (4.0-11.0) th/mm3 RBC (4.00-5.30) mil/mm3 Hgb (11.6-15.3) gm/dL Hct (35.0-46.0) % MCV (80.0-100.0) fL MCH (27.0-34.0) pg MCHC (32.0-36.0) % RDW (11.6-17.2) % Plt Count (150-450) th/mm3 MPV (7.0-11.0) fL Neut % (Auto) (16.0-70.0) % Lymph % (Auto) (9.0-44.0) % Heard % (Auto) (0.0-8.0) % Eos % (Auto) (0.0-4.0) % Baso % (Auto) (0.0-2.0) % Neut # (Auto) (1.8-7.7) th/mm3 Lymph # (Auto) (1.0-4.8) th/mm3 Heard # (Auto) (0.0-0.9) th/mm3 Eos # (Auto) (0.0-0.4) th/mm3 Baso # (Auto) (0.0-0.2) th/mm3 WBC Differential Differential Comment PT (9.8-11.6) sec INR Ratio APTT (24.3-30.1) sec Sodium (136-145) meq/L Potassium (3.5-5.1) meq/L Chloride (98-107) meq/L Carbon Dioxide (21.0-32.0) meq/L Anion Gap (5-15) meq/L BUN (7-18) mg/dL Creatinine (0.50-1.00) mg/dL Estimated GFR (>89) mL/min POC Glucose 105 (68-110) mg/dl Random Glucose (74-106) mg/dL Calcium (8.5-10.1) mg/dL Total Bilirubin (0.2-1.0) mg/dL AST (15-37) U/L ALT (10-53) U/L Alkaline Phosphatase (45-117) U/L Total Creatine Kinase (26-192) U/L Troponin I (0.02-0.05) ng/mL Total Protein (6.4-8.2) g/dL Albumin (3.4-5.0) g/dL Urine Color Yellow (Yellw/Straw) Urine Clarity Slightly cloudy (Clear) Urine pH 7.0 (5.0-8.5) Ur Specific [place] 1.020 (1.002-1.035) Urine Protein 100 H (Neg-Trace) mg/dL Urine Glucose (UA) Negative (Negative) mg/dL Urine Ketones 40 H (Negative) mg/dL Urine Occult Blood Negative (Negative) Urine Nitrate Negative (Negative) Urine Bilirubin Negative (Negative) Urine Urobilinogen 1.0 (Less than 2) mg/dL Ur Leukocyte Esterase Small H (Negative) Urine RBC 0-3 (0-3) /hpf Urine WBC 21-50 H (0-5) /hpf Ur Squamous Epith Cells 0-5 (0-5) /hpf Urine Bacteria Occasional H (None) /hpf Micro UA Comment Culture indicated Urine Culture Comments Culture indicated Imaging Data Radiologist's impression: Head CT 01/17/18 22:41 CONCLUSION: 1. Mild volume loss. 2. Atherosclerosis. . Chest X-Ray 01/17/18 22:42 CONCLUSION: Cardiomegaly. Discharge Plan Discharge Disposition Patient Disposition: 30 Still Patient Discharge Condition Condition: Stable Discharge Details Diagnosis: Acute confusion, Transient cerebral ischemia, Acute UTI Physicians Team ED Provider: Otis Nicole Primary Care Provider: Do Quinton Levin Rxs /Orders / Referrals /Forms Prescriptions: No Action buspirone 10 mg Tablet 10 mg PO BID RF: 0 diclofenac sodium 75 mg Tablet,Delayed Release (Dr/Ec) 75 mg PO DAILY RF: 0 metoprolol tartrate 50 mg Tablet 50 mg PO BID RF: 0 omeprazole 20 mg Tablet,Delayed Release (Dr/Ec) 20 mg PO DAILY RF: 0 ascorbic acid (vitamin C) [Vitamin C] 1,000 mg Tablet 500 mg PO BID RF: 0 calcium carbonate [Calcium 600] 600 mg calcium (1,500 mg) Tablet 600 mg PO DAILY RF: 0 benztropine 1 mg Tablet 1 mg PO BID RF: 0 carbidopa-levodopa 25-100 mg Tablet 1 tab PO TID RF: 0 venlafaxine 225 mg Tablet Extended Release 24hr 225 mg PO DAILY RF: 0 Status ED Status: With Doctor
--- NOTE | 2018-01-17 23:13 | XR ---
EXAM DATE: 01/17/2018 11:08 PM EDT AGE/SEX: 73 years / Female INDICATIONS: Short of breath. CLINICAL DATA: This is the patient's initial encounter. Patient reports that signs and symptoms have been present for 1 day and indicates a pain score of 0/10. MEDICAL/SURGICAL HISTORY: None. None. COMPARISON: No prior exams available for comparison. FINDINGS: Cardiomegaly. Clear lungs. Osseous structures are intact. CONCLUSION: Cardiomegaly. Electronically signed by: Elias Ramachandran MD 01/17/2018 11:11 PM EDT
[2018-01-17 23:23] LABS: Bilirubin,Urine Negative (Negative); Clarity,Urine Slightly Cloudy (Clear); Color,Urine Yellow (Yellw/Straw); Glucose,Urine (UA) Negative (Negative); Leukocyte Esterase,Urine Small (Negative); Nitrite,Urine Negative (Negative)
[2018-01-17 23:23] LABS: Baso # (Auto) 0.5 th/mm3 (0.0-0.2); Baso % (Auto) 4.2 % (0.0-2.0); Eos # (Auto) 0.1 th/mm3 (0.0-0.4); Eos % (Auto) 0.7 % (0.0-4.0); Hematocrit 38.8 % (35.0-46.0); Hemoglobin 12.9 gm/dL (11.6-15.3); Lymph % (Auto) 16.7 % (9.0-44.0); Mean Corpuscular HGB Conc 33.2 % (32.0-36.0); Mean Corpuscular Hemoglobin 27.1 pg (27.0-34.0); Mean Corpuscular Volume 81.7 fL (80.0-100.0); Mean Platelet Volume 6.5 fL (7.0-11.0); Mono # (Auto) 0.6 th/mm3 (0.0-0.9); Neut # (Auto) 8.6 th/mm3 (1.8-7.7); Neut % (Auto) 73.4 % (16.0-70.0); Platelet Count 280 th/mm3 (150-450); Red Blood Count 4.75 mil/mm3 (4.00-5.30); Red Cell Distribution Width 14.8 % (11.6-17.2); White Blood Count 11.8 th/mm3 (4.0-11.0)
[2018-01-17 23:28] LABS: RBC,Urine 0-3 /hpf (0-3); Squamous Epithelial Cell,Urine 0-5 /hpf (0-5); WBC,Urine 21-50 /hpf (0-5)
[2018-01-17 23:29] LABS: Bacteria,Urine Occasional /hpf
[2018-01-17 23:30] LABS: Chloride 103 meq/L (98-107); Potassium 3.6 meq/L (3.5-5.1); Sodium 141 meq/L (136-145)
--- NOTE | 2018-01-17 23:31 | CT ---
EXAM DATE: 01/17/2018 11:28 PM EDT AGE/SEX: 73 years / Female INDICATIONS: Memory loss. Nausea. Vomiting. CLINICAL DATA: This is the patient's initial encounter. Patient reports that signs and symptoms have been present for 1 day and indicates a pain score of 0/10. MEDICAL/SURGICAL HISTORY: Hypertension. Parkinson's disease. None. RADIATION DOSE: 51.89 CTDI (mGy) COMPARISON: No prior exams available for comparison. TECHNIQUE: CT of the head without contrast. Using automated exposure control and adjustment of the mA and/or kV according to patient size, radiation dose was kept as low as reasonably achievable to ob tain optimal diagnostic quality images. DICOM format image data is available electronically for revi ew and comparison. FINDINGS: There is mild diffuse prominence of the CSF spaces. This is greatest in the bifrontal regions. Calcif ications of the carotid and vertebral arteries are noted. No hemorrhage, infarct, or mass. No fractur es. CONCLUSION: 1. Mild volume loss. 2. Atherosclerosis. . Electronically signed by: Elias Ramachandran MD 01/17/2018 11:30 PM EDT
[2018-01-17 23:34] LABS: Albumin 4.1 g/dL (3.4-5.0); Anion Gap 10 meq/L (5-15); Blood Urea Nitrogen 26 mg/dL (7-18); Calcium 9.3 mg/dL (8.5-10.1); Carbon Dioxide 28.4 meq/L (21.0-32.0); Glucose,Random 105 mg/dL (74-106)
[2018-01-17 23:37] LABS: Activated Partial Thrombo Time 24.3 sec (24.3-30.1); Alanine Aminotransferase 11 U/L (10-53); Aspartate Aminotransferase 9 U/L (15-37); Glomerular Filtration Rate 75 mL/min (>89); Prothrombin Time 10.1 sec (9.8-11.6)
[2018-01-17 23:39] LABS: Total Protein 7.5 g/dL (6.4-8.2)
[2018-01-17 23:40] LABS: Alkaline Phosphatase 73 U/L (45-117); Creatine Kinase 68 U/L (26-192)
[2018-01-18] MEDS ORDERED: Temazepam 15 MG Capsule PO PRN (00:05)
[2018-01-18] MEDS ORDERED: Bisacodyl 10 MG Supp RECTAL PRN (00:05)
[2018-01-18] MEDS: Metoprolol Tartrate 50 MG Tablet PO SCH ×3 (02:10→22:47)
[2018-01-18] MEDS: Senna/Docusate Sodium 8.6/50 MG Tablet PO SCH ×2 (08:10→22:48)
[2018-01-18] MEDS: Pantoprazole Sodium 20 MG DR Tablet PO SCH (08:10)
[2018-01-18] MEDS: Venlafaxine XR 75 MG Capsule PO SCH (08:11)
--- NOTE | 2018-01-18 11:00 | P.HPIM ---
History of Present Illness Service: [facility] Hospitalist Primary Care Physician: Do Quinton Levin Chief Complaint: Confusion History of Present Illness: 73-year-old female with a medical history significant for Parkinson's disease, hypertension, anxiety and depression presented to the emergency room with complaint of confusion. Patient tells me she does not remember half the day yesterday. Her friends report that she was confused half the day. Patient does not recall the events. There were no reports of tonic-clonic activity or bowel/bladder incontinence. Patient denies any history of seizures. She states she was diagnosed with Parkinson's disease 3 years ago and has been compliant with her medications. She denies any focal weakness. She states she feels back to normal this morning but still cannot remember what happened yesterday. She follows outpatient with neurologist Dr. Abreu. She moved to this area about a year ago from [place]. Patient denies any urinary tract infection symptoms. - Diagnosis (1) Confusion (2) Memory deficit (3) Abnormal urinalysis Review of Systems All other systems reviewed negative except as stated in HPI Cardiovascular: Denies chest pain Genitourinary: Denies difficulty urinating, Denies painful urination, Denies urinary incontinence PMFSH - History History Provided By: Patient - Medical History Medical History: Medical History (Last Reviewed 01/18/18 @ 11:36 by Damari Gallegos MD) Anxiety Bilateral artificial lens implant FH: cholecystectomy H/O: hysterectomy HTN (hypertension) Major depressive disorder Parkinsons disease - Surgical History Surgical History: Surgical History (Last Updated 01/18/18 @ 11:37 by Damari Gallegos MD) History of hip replacement Hx of breast reduction, elective - Family History Family History: Family History (Last Updated 01/18/18 @ 11:37 by Damari Gallegos MD) Other Family history non-contributory - Tobacco History Second Hand Smoke Exposure: No Tobacco Use In Past 30 Days: No Smoking Status: Former smoker Tobacco Type: Cigarettes - Alcohol History How Often Do You Have a Drink Containing Alcohol: Monthly or less - Substance Use History Substance History: Past History - Travel History Recent Travel in the [facility] Within the Last 8 Weeks: No Recent Travel Out of the Country Within the Last 8 Weeks: No - Immunization History Tetanus Immunization: <5 Years Hx Influenza Vaccine This Season: Yes Medications and Allergies Active Medications: Active Medications Acetaminophen (Tylenol) 650 mg PO Q4H PRN PRN Reason: Temp > 100.4 Al Hydroxide/Mg Hydroxide (Milk Of Magnesia Liq) 30 ml PO Q12H PRN PRN Reason: Mild Constipation Benztropine Mesylate (Cogentin) 1 mg PO BID [facility] Last Admin: 01/18/18 08:10 Dose: 1 mg Bisacodyl (Dulcolax Supp) 10 mg RECTAL DAILY PRN PRN Reason: SEVERE CONSITIPATION Buspirone HCl (Buspar) 10 mg PO BID [facility] Last Admin: 01/18/18 08:11 Dose: 10 mg Carbidopa/Levodopa (Sinemet 25/100 Mg) 1 tab PO TID [facility] Last Admin: 01/18/18 08:10 Dose: 1 tab Enalaprilat (Vasotec Inj) 2.5 mg IV.PUSH Q6H PRN PRN Reason: SBP > 180 Sodium Chloride (Ns Inj) 1,000 mls @ 70 mls/hr IV.CONT .[id number] [facility] Stop: 01/18/18 13:02 Last Admin: 01/18/18 00:56 Dose: 70 mls/hr Ceftriaxone Sodium 1,000 mg/ (Sodium Chloride) 100 mls @ 200 mls/hr IV.SIG Q24H [facility] Last Infusion: 01/18/18 05:38 Dose: Infused Lactulose (Lactulose Liq) 30 ml PO DAILY PRN PRN Reason: SEVERE CONSITIPATION Metoprolol Tartrate (Lopressor) 50 mg PO BID [facility] Last Admin: 01/18/18 08:11 Dose: 50 mg Non-Formulary Medication (Ascorbic Acid (Vitamin C) [Vitamin C]) 500 mg PO BID [facility] Ondansetron HCl (Zofran Inj) 4 mg IV.PUSH Q6H PRN PRN Reason: NAUSEA OR VOMITING Pantoprazole Sodium (Protonix) 20 mg PO DAILY [facility] Last Admin: 01/18/18 08:10 Dose: 20 mg Senna/Docusate Sodium (Carito-Colace) 1 tab PO BID [facility] Last Admin: 01/18/18 08:10 Dose: 1 tab Sennosides (Senokot) 17.2 mg PO Q12H PRN PRN Reason: Moderate Constipation Sodium Chloride (Ns Flush) 2 ml IV.FLUSH PRN PRN PRN Reason: FLUSH AFTER USING IV ACCESS Temazepam (Restoril) 15 mg PO HS PRN PRN Reason: INSOMNIA Venlafaxine HCl (Effexor Xr) 225 mg PO DAILY [facility] Last Admin: 01/18/18 08:11 Dose: 225 mg Allergies Allergy/AdvReac Type Severity Reaction Status Date / Time No Known Allergies Allergy Verified 01/17/18 22:12 Home Medications Medication Instructions Recorded Confirmed Type ascorbic acid (vitamin C) [Vitamin 500 mg PO BID 01/17/18 01/17/18 History C] benztropine 1 mg PO BID 01/17/18 01/17/18 History buspirone 10 mg PO BID 01/17/18 01/17/18 History calcium carbonate [Calcium 600] 600 mg PO DAILY 01/17/18 01/17/18 History carbidopa-levodopa 1 tab PO TID 01/17/18 01/17/18 History diclofenac sodium 75 mg PO DAILY 01/17/18 01/17/18 History metoprolol tartrate 50 mg PO BID 01/17/18 01/17/18 History omeprazole 20 mg PO DAILY 01/17/18 01/17/18 History venlafaxine 225 mg PO DAILY 01/17/18 01/17/18 History Exam Vital signs: Vital Signs 01/17/18 21:59 01/17/18 22:32 01/17/18 23:00 Temperature 98.4 F Pulse Rate 59 L 78 Respiratory Rate 18 20 Blood Pressure 181/91 H 172/80 H 180/78 H Pulse Oximetry 01/17/18 23:29 01/17/18 23:32 01/18/18 00:30 Temperature Pulse Rate 63 62 Respiratory Rate 18 20 Blood Pressure 200/91 H 179/94 H Pulse Oximetry 97 97 01/18/18 00:44 01/18/18 01:00 01/18/18 01:37 Temperature 97.4 F L Pulse Rate 61 Respiratory Rate 20 Blood Pressure 198/91 H Pulse Oximetry 97 97 97 01/18/18 04:00 01/18/18 06:21 01/18/18 08:00 Temperature 96.5 F L 97.2 F L Pulse Rate 56 L 57 L 59 L Respiratory Rate 20 17 Blood Pressure 194/77 H 178/77 H Pulse Oximetry 97 98 Intake & Output 01/17/18 01/18/18 01/18/18 18:59 06:59 18:59 Intake Total 100 / 100 Balance 100 / 100 Weight 69.7 kg Intake: IV 100 / 100 Rocephin Inj 1,000 MG In NS Inj 100 / 100 100 ML @ 200 mls/hr IV.SIG Q24H [facility] Rx#:[id number] Oral 0 / 0 Other: # Voids 2 Weight On Admission 69.8 kg Narrative: CONSTITUTIONAL/GENERAL: This is an adequately nourished patient, in no apparent distress. Vital signs reviewed SKIN: No jaundice, rashes, or concerning lesions. Not diaphoretic. HEAD: Atraumatic. Normocephalic. EYES: Pupils equal and round and reactive. Extra ocular motions are intact. No scleral icterus. No injection or drainage. ENT: Hearing grossly normal. Nose without drainage. Throat without visible erythema, exudates, masses, or lesions. NECK: Trachea midline. Neck is supple, non-tender. No palpable thyroid enlargement or nodularity. CARDIOVASCULAR: Normal rate and regular rhythm without murmurs, gallops, or rubs. No JVD. Peripheral pulses 2+ and symmetric. RESPIRATORY/CHEST: Symmetric, unlabored respirations. Breath sounds equal and clear to auscultation bilaterally. No wheezes, crackles, rales, or rhonchi. GASTROINTESTINAL: Abdomen soft, non-tender, non-distended. No hepato- splenomegaly, or palpable masses. No guarding. Bowel sounds present. MUSCULOSKELETAL: Extremities without clubbing, cyanosis, or edema. No joint tenderness or effusion noted. No calf tenderness. No mottling or clubbing. NEUROLOGICAL: Awake and alert. Motor and sensory grossly within normal limits. Follows commands. Move all extremities spontaneously. No focal deficits. PSYCHIATRIC: No obvious mood problems. No apparent hallucinations or other psychotic thought process. Results - Labs CBC & Chem 7: 01/17/18 22:55 01/17/18 22:55 Labs: Short CBC 01/17/18 Range/Units 22:55 WBC 11.8 H (4.0-11.0) th/mm3 Hgb 12.9 (11.6-15.3) gm/dL Hct 38.8 (35.0-46.0) % Plt Count 280 (150-450) th/mm3 BMP 01/17/18 22:55 Sodium 141 Potassium 3.6 Chloride 103 Carbon Dioxide 28.4 BUN 26 H Creatinine 0.76 Calcium 9.3 Cardiac Enzymes 01/17/18 Range/Units 22:55 Total Creatine Kinase 68 (26-192) U/L Troponin I Less than 0.02 L (0.02-0.05) ng/mL Liver Function 01/17/18 Range/Units 22:55 Total Bilirubin 0.4 (0.2-1.0) mg/dL AST 9 L (15-37) U/L ALT 11 (10-53) U/L Alkaline Phosphatase 73 (45-117) U/L Albumin 4.1 (3.4-5.0) g/dL Urine 01/17/18 Range/Units 23:10 Urine Color Yellow (Yellw/Straw) Urine Clarity Slightly cloudy (Clear) Urine pH 7.0 (5.0-8.5) Ur Specific [place] 1.020 (1.002-1.035) Urine Protein 100 H (Neg-Trace) mg/dL Urine Glucose (UA) Negative (Negative) mg/dL - Imaging Impressions Head CT 01/17/18 22:41 CONCLUSION: 1. Mild volume loss. 2. Atherosclerosis. . Chest X-Ray 01/17/18 22:42 CONCLUSION: Cardiomegaly. Caprini VTE Risk Assessment Caprini VTE Risk Assessment: Moderate/High Risk (score >= 2) Caprini Risk Assessment Model: Point Value = 1 Point Value = 2 Point Value = 3 Point Value = 5 Age 41-60 Minor surgery BMI > 25 kg/m2 Swollen legs Varicose veins or History of unexplained or recurrent spontaneous Oral contraceptives or hormone replacement Sepsis (< 1 month) Serious lung disease, including pneumonia (< 1 month) Abnormal pulmonary function Acute myocardial infarction Congestive heart failure (< 1 month) History of inflammatory bowel disease Medical patient at bed rest Age 61-74 Arthroscopic surgery Major open surgery (> 45 min) Laparoscopic surgery (> 45 min) Malignancy Confined to bed (> 72 hours) Immobilizing plaster cast Central venous access Age >= 75 History of VTE Family history of VTE Factor V Leiden Prothrombin [id number] Lupus anticoagulant Anticardiolipin antibodies Elevated serum homocysteine Heparin-induced thrombocytopenia Other congenital or acquired thrombophilia Stroke (< 1 month) Elective arthroplasty Hip, pelvis, or leg fracture Acute spinal cord injury (< 1 month) Prophylaxis Regimen: Total Risk Factor Score Risk Level Prophylaxis Regimen 0-1 Low Early ambulation 2 Moderate Order ONE of the following: *Sequential Compression Device (SCD) *Heparin 5000 units SQ BID 3-4 Higher Order ONE of the following medications: *Heparin 5000 units SQ TID *Enoxaparin/Lovenox 40 mg SQ daily (WT < 150 kg, CrCl > 30 mL/min) *Enoxaparin/Lovenox 30 mg SQ daily (WT < 150 kg, CrCl > 10-29 mL/min) *Enoxaparin/Lovenox 30 mg SQ BID (WT < 150 kg, CrCl > 30 mL/min) AND/OR *Sequential Compression Device (SCD) 5 or more Highest Order ONE of the following medications: *Heparin 5000 units SQ TID (Preferred with Epidurals) *Enoxaparin/Lovenox 40 mg SQ daily (WT < 150 kg, CrCl > 30 mL/min) *Enoxaparin/Lovenox 30 mg SQ daily (WT < 150 kg, CrCl > 10-29 mL/min) *Enoxaparin/Lovenox 30 mg SQ BID (WT < 150 kg, CrCl > 30 mL/min) AND *Sequential Compression Device (SCD) Assessment and Plan - Assessment (1) Confusion Code(s): R41.0 - Disorientation, unspecified Status: Acute (2) Memory deficit Code(s): R41.3 - Other amnesia Status: Acute (3) Abnormal urinalysis Code(s): R82.90 - Unspecified abnormal findings in urine Status: Acute - Plan 73-year-old female with Parkinson's disease, hypertension, anxiety and depression presented with acute memory loss for half a day and confusion. Mental status back at baseline. Acute memory loss/confusion: -Head CT unremarkable. She has an abnormal urinalysis but denies UTI symptoms. On Parkinson's medications. -Could have been a seizure versus TIA versus medication side effect. Will obtain MRI, EEG. -Consult neurology Parkinson's disease: She reports this has been fairly controlled with medications. No significant issues with gait. Some left hand tremors. -Continue home medications. Hypertension: Continue home medications Abnormal urinalysis: - Currently on Rocephin. Follow urine cultures and downgrade/DC antibiotics as indicated. Continue home medications for the rest of her chronic conditions. H&P: Quality - VTE Deep Vein Thrombosis/Pulmonary Embolism Present on Admission: No
[2018-01-18] MEDS: Enoxaparin Inj 30 MG/0.3 ML Syringe SQ SCH (12:10)
[2018-01-18] MEDS: Lisinopril 10 MG Tablet PO SCH (12:15)
[2018-01-18] MEDS ORDERED: Gadobutrol PF 7.5 MMOL/7.5 ML Vial (for RAD) IV.SIG ONE (15:35)
--- NOTE | 2018-01-18 15:56 | MR ---
EXAM DATE: 01/18/2018 3:48 PM EDT AGE/SEX: 73 years / Female INDICATIONS: Altered mental status. Confusion. CLINICAL DATA: This is the patient's initial encounter. Patient reports that signs and symptoms have been present for 2 days and indicates a pain score of 0/10. MEDICAL/SURGICAL HISTORY: Parkinson's disease. Depressive disorder. Cholecystectomy. Hysterec zofia. Left hip replacement. COMPARISON: [facility], CT HEAD W/O CONTRAST, 01/17/2018. . TECHNIQUE: Multiplanar, multisequence examination of the brain was performed without and with 7 ml Ga davist (gadobutrol) contrast as a single exam dose. FINDINGS: Cerebrum: The ventricles are normal for age. Very minimal, symmetric cortical atrophy No evidence o f midline shift, mass lesion, hemorrhage or acute infarction. No extraaxial fluid collections are se en. The pituitary gland and suprasellar cistern are normal in configuration. White Matter: Minimal periventricular and a few scattered deep white matter tract areas of small ves daniel ischemic. Posterior Fossa: The cerebellum and brainstem are intact. The 4th ventricle is midline. The cerebel lopontine angle is unremarkable. The cerebellar tonsils are normal in position. Diffusion Imaging: No focal areas of restricted diffusion are seen. No evidence of acute infarction . Extracranial: The visualized portions of the orbits and paranasal sinuses are unremarkable. Post Contrast: No abnormal areas of parenchymal or dural enhancement. No evidence of blood-brain ba rrier breakdown. CONCLUSION: 1. Chronic changes with very minimal, symmetric cortical atrophy. Very minimal periventricular and s cattered deep white matter tract areas of small vessel ischemic demyelination. 2. Nothing acute to explain current clinical symptoms. Electronically signed by: Amari Arias MD 01/18/2018 3:55 PM EDT
--- NOTE | 2018-01-18 19:45 | MB ---
cc: Madina Liang MD,Julissa Levin Dr DATE: 01/18/2018 REASON FOR CONSULTATION: Memory lapse. HISTORY OF PRESENT ILLNESS: The patient is a 73-year-old woman with history of Parkinson's disease, predominantly in the left hand - mild for the last 3 years, on Sinemet 3 times a day 25/100; hypertension, anxiety, and depression. She was at home with some friends yesterday when she became nauseated. No chest pain or shortness of breath, went and vomited. After that, she was looking around her house and everything looked unfamiliar. She was confused, could not remember what happened. No weakness, numbness, or tingling. No seizure. She still feels a little off today, but she was found to have also a UTI. She follows with Dr. Abreu, her neurologist. PAST MEDICAL HISTORY: Anxiety, depression, Parkinson's, bilateral artificial lens implants, cholecystectomy, hysterectomy, and breast reduction. SOCIAL HISTORY: Ex-smoker, rarely drinks. Does not take aspirin. ALLERGIES: MEDICINE: NONE. PHYSICAL EXAMINATION: VITAL SIGNS: Temperature 98.5, pulse 64, respiratory rate 16, blood pressure 151/80. NECK: Supple, no bruits. HEART: Regular. NEUROLOGIC: She is awake, alert. She is oriented. She is fluent. Pupils reactive. Visual cotton full. Face symmetrical. Tongue midline. Motor-burch, no drift or leg lag. DTRs are symmetrical. No cogwheeling, no tremor at rest. There is minimal tremor with [id number]-mbbuin bilaterally. Toes downgoing. Gait: She has been ambulating in the room. LABORATORY DATA: Reviewed. White count 11.8, neutrophil 73.4. Coag panel is normal. Chemistries: GFR 75. Troponin less than 0.02. Urine showed 100 protein, 21-50 white cells. Her culture is still pending. DIAGNOSTIC DATA: MRI brain was done and did not show anything acute, just chronic changes and some atrophy. IMPRESSION AND PLAN: Possible transient ischemic attack. It may have been from the vomiting, she may not have caught her breath, but given that this has not happened to her before, I would like to work her up for a transient ischemic attack. EEG is on order. I am going to get a igiugig of [place] MRA, carotid ultrasound, and echo; put her on a baby aspirin, check a lipid panel and a B12 level. If all is negative, she can be discharged home on baby aspirin. If her lipids are elevated, then a statin should be considered for an LDL over 70. Continue her home medications. Antibiotics for her urinary tract infection, as well as possibly an outpatient Holter or event monitor. I will have her follow up with Dr. Abreu post discharge as well for further input. MD URSULA Banda/ariana/carine , 06:22 PM , 06:30 PM
--- NOTE | 2018-01-18 22:19 | ECG ---
Date Performed: 01/17/2018 Time Performed: 22:54:58 PTAGE: 73 years EKG: Sinus rhythm ARM LEADS REVERSED ATYPICAL ECG NO PREVIOUS TRACING DOCTOR: Tommie De Luna Interpretating Date/Time 01/18/2018 22:18:15
[2018-01-18] MEDS: Ascorbic Acid 500 MG Tablet PO SCH (22:47)
[2018-01-18] MEDS: Acetaminophen 325 MG Tablet PO PRN (22:52)
[2018-01-19 01:27] LABS: Chol/HDL Ratio 5.91 Ratio
[2018-01-19 06:32] LABS: Baso # (Auto) 0.1 th/mm3 (0.0-0.2); Baso % (Auto) 1.1 % (0.0-2.0); Eos # (Auto) 0.3 th/mm3 (0.0-0.4); Eos % (Auto) 4.1 % (0.0-4.0); Hematocrit 36.3 % (35.0-46.0); Hemoglobin 11.7 gm/dL (11.6-15.3); Lymph # (Auto) 2.9 th/mm3 (1.0-4.8); Lymph % (Auto) 43.1 % (9.0-44.0); Mean Corpuscular HGB Conc 32.3 % (32.0-36.0); Mean Corpuscular Hemoglobin 26.7 pg (27.0-34.0); Mean Corpuscular Volume 82.6 fL (80.0-100.0); Mean Platelet Volume 6.2 fL (7.0-11.0); Mono # (Auto) 0.4 th/mm3 (0.0-0.9); Mono % (Auto) 6.6 % (0.0-8.0); Neut % (Auto) 45.1 % (16.0-70.0); Platelet Count 259 th/mm3 (150-450); Red Blood Count 4.39 mil/mm3 (4.00-5.30); Red Cell Distribution Width 14.9 % (11.6-17.2); White Blood Count 6.7 th/mm3 (4.0-11.0)
[2018-01-19 06:57] LABS: Calcium 8.9 mg/dL (8.5-10.1); Potassium 4.7 meq/L (3.5-5.1)
--- NOTE | 2018-01-19 08:47 | P.PN ---
Subjective Interval history: Follow-up TIA symptoms. Patient seen and examined, lying in bed comfortably no apparent distress. Patient is alert and awake oriented 3. States symptoms have improved overnight. No acute complaints. Vital signs stable. Afebrile. Urology and to see patient today. Likely discharge home later today if imaging negative. Physical Exam Vital signs: Vital Signs 01/18/18 12:00 01/18/18 16:00 01/18/18 20:00 Temperature 97.6 F 98.5 F 98.2 F Pulse Rate 65 64 62 Respiratory Rate 16 16 18 Blood Pressure 150/72 H 151/80 H 130/64 Pulse Oximetry 97 95 93 L 01/18/18 20:32 01/19/18 00:00 Temperature 97.5 F L Pulse Rate 59 L Respiratory Rate 18 Blood Pressure 143/71 H Pulse Oximetry 93 L 98 Intake & Output 01/18/18 01/19/18 01/19/18 18:59 06:59 18:59 Intake Total 1786 / 1786 465 / 465 Balance 1786 / 1786 465 / 465 Weight 72.3 kg Intake: IV 826 / 826 100 / 100 NS Inj 1,000 ML @ 70 mls/hr IV. 826 / 826 CONT .[id number] MARNIE Rx#: [id number] Rocephin Inj 1,000 MG In NS Inj 100 / 100 100 ML @ 200 mls/hr IV.SIG Q24H MARNIE Rx#:[id number] Oral 960 / 960 365 / 365 Other: # Voids 6 2 Date of Last Bowel Movement 01/17/18 01/17/18 # Bowel Movements 0 Narrative: GENERAL: Well-developed, well-nourished patient in [place]. SKIN: Warm and dry. No rash. HEAD: Normocephalic. Atraumatic. EYES: Pupils equal and round. No scleral icterus. No injection or drainage. ENT: No nasal bleeding or discharge. Mucous membranes pink and moist. NECK: Supple. Trachea midline. CARDIOVASCULAR: Regular rate and rhythm. S1, S2 noted. No murmur appreciated. RESPIRATORY: No accessory muscle use. Clear to auscultation. Breath sounds equal bilaterally. GASTROINTESTINAL: Abdomen soft, non-tender, nondistended. Normoactive bowel sounds x4. MUSCULOSKELETAL: No obvious deformities. Extremities without clubbing, cyanosis , or edema. NEUROLOGICAL: Awake and alert. No obvious cranial nerve deficits. Motor grossly within normal limits. 5/5 muscle strength in bilateral upper and lower extremities. Normal speech. PSYCHIATRIC: Appropriate mood and affect; insight and judgment normal. Results - Labs CBC & Chem 7: 01/19/18 06:10 01/19/18 06:10 Laboratory Results - last 24 hr 01/18/18 01/19/18 01/19/18 18:32 06:10 06:10 CBC w Diff Auto diff final WBC 6.7 RBC 4.39 Hgb 11.7 Hct 36.3 MCV 82.6 MCH 26.7 L MCHC 32.3 RDW 14.9 Plt Count 259 MPV 6.2 L Neut % (Auto) 45.1 Lymph % (Auto) 43.1 Allen % (Auto) 6.6 Eos % (Auto) 4.1 H Baso % (Auto) 1.1 Neut # (Auto) 3.0 Lymph # (Auto) 2.9 Allen # (Auto) 0.4 Eos # (Auto) 0.3 Baso # (Auto) 0.1 WBC Differential . Differential Comment . Sodium 142 Potassium 4.7 D Chloride 104 Carbon Dioxide 32.0 Anion Gap 6 BUN 22 H Creatinine 0.66 Estimated GFR 88 L Random Glucose 93 Calcium 8.9 Triglycerides 357 H Cholesterol 219 H LDL Cholesterol, Calc 111 H HDL Cholesterol 37.0 L Cholesterol/HDL Ratio 5.91 Vitamin B12 567 - Imaging Impressions Head MRI 01/18/18 00:00 CONCLUSION: 1. Chronic changes with very minimal, symmetric cortical atrophy. Very minimal periventricular and scattered deep white matter tract areas of small vessel ischemic demyelination. 2. Nothing acute to explain current clinical symptoms. Assessment and Plan - Assessment (1) Confusion Code(s): R41.0 - Disorientation, unspecified Status: Acute (2) Memory deficit Code(s): R41.3 - Other amnesia Status: Acute (3) Abnormal urinalysis Code(s): R82.90 - Unspecified abnormal findings in urine Status: Acute - Plan 73-year-old female with Parkinson's disease, hypertension, anxiety and depression presented with acute memory loss for half a day and confusion. Mental status back at baseline. Acute memory loss/confusion. Symptoms improved. -Head CT unremarkable. She has an abnormal urinalysis but denies UTI symptoms. On Parkinson's medications. -Could have been a seizure versus TIA versus medication side effect. -MRI unremarkable. -Consult placed to neurology, appreciate input recommendations. -Lipid panel checked, elevated and will place on statin. B12 normal. -EEG ordered and done. Awaiting report. -Echocardiogram ordered and awaiting report as well. -MRA done today showing chronic arthrosclerotic changes. No acute event. -Placed on baby aspirin. Continue. -Carotid ultrasound no significant findings. Parkinson's disease: She reports this has been fairly controlled with medications. No significant issues with gait. Some left hand tremors. -Continue home medications. Hypertension: Continue home medications Abnormal urinalysis: Ruled out UTI. -Was started on Rocephin. Urine culture showing mixed gram positive, probable contaminants. -No Leukocytosis. No complaints including dysuria. Will DC antibiotic. Continue home medications for the rest of her chronic conditions. Discharge Planning: Discharge home if EEG and echocardiogram negative. Awaiting results.
--- NOTE | 2018-01-19 09:15 | US ---
EXAM DATE: 01/19/2018 9:08 AM EDT AGE/SEX: 73 years / Female INDICATIONS: Transient ischemic attack. CLINICAL DATA: This is the patient's initial encounter. Patient reports that signs and symptoms have been present for 1 day and indicates a pain score of 0/10. MEDICAL/SURGICAL HISTORY: Parkinson's disease. Anxiety. Depression. Cholecystectomy. Hysterec zofia. Bilateral artificial lens implants. Hip replacement. Breast reduction. COMPARISON: No prior exams available for comparison. VELOCITY PARAMETERS: ICA/CCA Ratio: Right 1.2 , Left 0.8 ICA: Right 114.1 cm/sec, Left 80.6 cm/sec CCA: Right 94.7 cm/sec, Left 100.0 cm/sec ECA: Right 82.7 cm/sec, Left 56.4 cm/sec Vertebral: Right 54.2 cm/sec antegrade, Left 82.2 cm/sec antegrade FINDINGS: Right Carotid: Trace plaque of the bulb and proximal internal carotid artery.The waveforms are withi n normal limits. Left Carotid: Trace plaque of the bulb and proximal internal carotid artery. The waveforms are withi n normal limits. Other: None. CONCLUSION: 1. Right Internal Carotid Artery: No significant plaque or narrowing. 2. Left Internal Carotid Artery: No significant plaque or narrowing. Electronically signed by: Johann Sandoval MD 01/19/2018 9:14 AM EDT
[2018-01-19] MEDS: Pantoprazole Sodium 20 MG DR Tablet PO SCH (09:40)
[2018-01-19] MEDS: Ascorbic Acid 500 MG Tablet PO SCH ×2 (09:40→22:04)
[2018-01-19] MEDS: Lisinopril 10 MG Tablet PO SCH (09:40)
[2018-01-19] MEDS: Venlafaxine XR 75 MG Capsule PO SCH (09:42)
[2018-01-19] MEDS: Metoprolol Tartrate 50 MG Tablet PO SCH ×2 (09:42→22:04)
--- NOTE | 2018-01-19 10:01 | MR ---
EXAM DATE: 01/19/2018 9:54 AM EDT AGE/SEX: 73 years / Female INDICATIONS: Altered mental status. CLINICAL DATA: This is the patient's subsequent encounter. Patient reports that signs and symptoms h ave been present for 2 days and indicates a pain score of 0/10. MEDICAL/SURGICAL HISTORY: Hypertension. Parkinson's disease. Hysterectomy. Cholecystectomy. l eft hip replacement, cataract, breast reduction COMPARISON: [facility], MR HEAD W & W/O CONTRAST, 01/18/2018.. . TECHNIQUE: 3D [id number] MRA was performed. Source images, multiplanar STS MIP, and 3D volum e MIP reconstructions were reviewed. FINDINGS: The examination is degraded by motion artifact. There is excellent visualization of the major intracranial arteries out to the second-order branch ve ssels. Scattered atherosclerotic disease throughout the intercavernous ICAs bilaterally as well as t he A1 and M1 branches. No hemodynamically significant stenosis observed. There is no evidence for ane urysm, vessel truncation or stenosis, and no evidence for vascular malformation. CONCLUSION: 1. The examination is degraded by motion artifact. 2. No hemodynamically significant stenosis despite diffuse atherosclerotic disease. Electronically signed by: Jason Majano MD 01/19/2018 10:00 AM EDT
[2018-01-19] MEDS: Senna/Docusate Sodium 8.6/50 MG Tablet PO SCH ×2 (11:59→22:04)
[2018-01-19] MEDS: Enoxaparin Inj 30 MG/0.3 ML Syringe SQ SCH (12:15)
[2018-01-19 13:39] LABS: Barbiturate Screen,Urine Neg (Neg)
[2018-01-19 13:40] LABS: Cannabinoid Screen,Urine Neg (Neg)
[2018-01-19 13:49] LABS: Amphetamine Screen,Urine Neg (Neg)
[2018-01-19 13:50] LABS: Cocaine Screen,Urine Neg (Neg)
[2018-01-19 13:56] LABS: Opiate Screen,Urine Neg (Neg)
--- NOTE | 2018-01-19 14:06 | MG ---
cc: Amor Olivier MD EEG NUMBER: [id number] INDICATIONS: Memory loss for several hours. MEDICATIONS: Sinemet, Effexor, Cogentin. DESCRIPTION: A 9 Hz, 60 microvolt symmetric, diffuse rhythm is seen. The recording overall is synchronous and symmetric. Photic stimulation is performed without significant posterior driving. No hemisphere asymmetries are noted. No epileptiform or seizure activity is seen. IMPRESSION: Normal awake electroencephalogram. No evidence for focal or diffuse abnormality. She was noted to have some feet twitching, but this did not correlate with any electrocardiographic changes. MD ARTIE Johnson/RICHMOND , 01:54 PM , 01:58 PM
[2018-01-19] MEDS: Acetaminophen 325 MG Tablet PO PRN (18:10)
--- NOTE | 2018-01-19 19:43 | ECHRPT ---
Indication: CVA/TIA CONCLUSIONS The left ventricular systolic function is normal about 60%. Wall thickness is normal. Normal left ventricular size. There is mild tricuspid valve regurgitation. The estimated pulmonary arterial pressure is 30.3 mmHg. BP: / HR: Rhythm: Sinus MEASUREMENTS (Male / Female) Normal Values Technical Quality:Good 2D ECHO LV Diastolic Diameter PLAX 3.5 cm 4.2 - 5.9 / 3.9 - 5.3 cm LV Systolic Diameter PLAX 2.7 cm IVS Diastolic Thickness 0.9 cm 0.6 - 1.0 / 0.6 - 0.9 cm LVPW Diastolic Thickness 0.9 cm 0.6 - 1.0 / 0.6 - 0.9 cm LV Relative Wall Thickness 0.5 LVOT Diameter 2.0 cm M-MODE Aortic Root Diameter MM 3.2 cm LA Systolic Diameter MM 3.3 cm LA Ao Ratio MM 1.0 AV Cusp Separation MM 1.9 cm DOPPLER AV Peak Velocity 130.0 cm/s AV Peak Gradient 6.8 mmHg LVOT Peak Velocity 99.7 cm/s LVOT Peak Gradient 4.0 mmHg AV Area Cont Eq pk 2.4 cm Mitral E Point Velocity 62.7 cm/s Mitral A Point Velocity 88.4 cm/s Mitral E to A Ratio 0.7 LV E' Lateral Velocity 5.5 cm/s Mitral E to LV E' Lateral Ratio 11.5 LV E' Septal Velocity 5.1 cm/s Mitral E to LV E' Septal Ratio 12.4 TR Peak Velocity 225.0 cm/s TR Peak Gradient 20.3 mmHg Right Atrial Pressure 10.0 mmHg Pulmonary Artery Systolic Pressu 30.3 mmHg Right Ventricular Systolic Press 30.3 mmHg PV Peak Velocity 95.0 cm/s PV Peak Gradient 3.6 mmHg FINDINGS LEFT VENTRICLE The left ventricular systolic function is normal about 60%. Wall thickness is normal. Normal left ventricular size. RIGHT VENTRICLE Normal right ventricular size and systolic function. LEFT ATRIUM The left atrial size is normal. RIGHT ATRIUM The right atrial size is normal. ATRIAL SEPTUM Normal atrial septal thickness without atrial level shunting by limited color doppler interrogation. AORTA The aortic root and proximal ascending aorta are normal in size on limited imaging. MITRAL VALVE Structurally normal mitral valve. No mitral valve stenosis or regurgitation. AORTIC VALVE Trileaflet aortic valve. No aortic valve stenosis or regurgitation. TRICUSPID VALVE There is mild tricuspid valve regurgitation. The estimated pulmonary arterial pressure is 30.3 mmHg. PULMONARY VALVE No pulmonary valve regurgitation or stenosis. VESSELS The inferior vena cava is normal in size. PERICARDIUM No pericardial effusion. Raleigh Cisneros MD (Electronically Signed) Final Date:19 January 2018 19:41
--- NOTE | 2018-01-20 07:54 | P.DS ---
Date of admission: 01/18/18 00:05 Primary care physician: Do Quinton Levin Brief History from admission: 73-year-old female with a medical history significant for Parkinson's disease, hypertension, anxiety and depression presented to the emergency room with complaint of confusion. Patient tells me she does not remember half the day yesterday. Her friends report that she was confused half the day. Patient does not recall the events. There were no reports of tonic-clonic activity or bowel/bladder incontinence. Patient denies any history of seizures. She states she was diagnosed with Parkinson's disease 3 years ago and has been compliant with her medications. She denies any focal weakness. She states she feels back to normal this morning but still cannot remember what happened yesterday. She follows outpatient with neurologist Dr. Abreu. She moved to this area about a year ago from [place]. Patient denies any urinary tract infection symptoms. DS: Diagnosis - Discharge Diagnosis (1) Confusion Status: Acute (2) Memory deficit Status: Acute (3) Abnormal urinalysis Status: Acute DS: Medications - Discharge Medications Prescriptions: aspirin 81 mg PO DAILY 30 Days #30 tab atorvastatin 40 mg PO DAILY 30 Days #30 tab lisinopril 10 mg PO DAILY 30 Days #30 tab DS: Summary Hospital Course: 73-year-old female with Parkinson's disease, hypertension, anxiety and depression presented with acute memory loss for half a day and confusion. Mental status back at baseline. Head CT unremarkable. She has an abnormal urinalysis. Urine culture showing mixed gram positive, probable contaminants. No Leukocytosis. No complaints including dysuria. IV Rocephin initially started , was eventually discontinued. Patient was on Parkinson's medications upon presentation. MRI unremarkable. Neurology followed patient during hospitalization, lipid panel with elevated findings, placed on statin. B12 normal. EEG was ordered and unremarkable as well as echocardiogram. MRI did show some chronic atherosclerotic changes no acute events. Was placed on baby aspirin. Carotid ultrasound was also done with no significant findings. Patient will be discharged home stable and to follow-up with PCP and neurologist. Patient has a history of Parkinson's disease, fairly controlled with medications. No significant issues with gait. We will continue home medications. Monitor managed outpatient. Patient has history of hypertension and this was stabilized during hospitalization, home medications were continued. - Time Spent with Patient Total time spent providing and/or coordinating discharge services: Greater than 30 minutes - Quality: VTE Deep Vein Thrombosis/Pulmonary Embolism Present on Admission: No Exam Vital signs: Vital Signs 01/19/18 08:00 01/19/18 12:00 01/19/18 16:00 Temperature 98.5 F 98.1 F 98.4 F Pulse Rate 59 L 56 L 58 L Respiratory Rate 19 19 17 Blood Pressure 163/85 H 160/84 H 161/81 H Pulse Oximetry 96 98 97 01/19/18 20:00 01/20/18 00:00 Temperature 98.6 F 98.4 F Pulse Rate 58 L 63 Respiratory Rate 16 16 Blood Pressure 166/81 H 159/78 H Pulse Oximetry 96 96 Intake & Output 01/19/18 01/20/18 01/20/18 18:59 06:59 18:59 Intake Total 300 / 300 Balance 300 / 300 Weight 70.9 kg Intake: Oral 300 / 300 Other: # Voids 2 4 Date of Last Bowel Movement 01/17/18 Narrative: GENERAL: Well-developed, well-nourished patient in [facility]. SKIN: Warm and dry. No rash. HEAD: Normocephalic. Atraumatic. EYES: Pupils equal and round. No scleral icterus. No injection or drainage. ENT: No nasal bleeding or discharge. Mucous membranes pink and moist. NECK: Supple. Trachea midline. CARDIOVASCULAR: Regular rate and rhythm. S1, S2 noted. No murmur appreciated. RESPIRATORY: No accessory muscle use. Clear to auscultation. Breath sounds equal bilaterally. GASTROINTESTINAL: Abdomen soft, non-tender, nondistended. Normoactive bowel sounds x4. MUSCULOSKELETAL: No obvious deformities. Extremities without clubbing, cyanosis , or edema. NEUROLOGICAL: Awake and alert. No obvious cranial nerve deficits. Motor grossly within normal limits. 5/5 muscle strength in bilateral upper and lower extremities. Normal speech. PSYCHIATRIC: Appropriate mood and affect; insight and judgment normal. Results Procedures completed during hospitalization: None. Labs on day of discharge: Labs from last 24 hours 01/19/18 12:30 Urine Opiates Screen Neg Ur Barbiturates Screen Neg Ur Amphetamines Screen Neg U Benzodiazepines Scrn Neg Urine Cocaine Screen Neg U Cannabinoids Screen Neg - Impressions ITS Impressions Head CT 01/17/18 22:41 CONCLUSION: 1. Mild volume loss. 2. Atherosclerosis. . Chest X-Ray 01/17/18 22:42 CONCLUSION: Cardiomegaly. Head MRI 01/18/18 00:00 CONCLUSION: 1. Chronic changes with very minimal, symmetric cortical atrophy. Very minimal periventricular and scattered deep white matter tract areas of small vessel ischemic demyelination. 2. Nothing acute to explain current clinical symptoms. Carotid Doppler Study 01/19/18 00:00 CONCLUSION: 1. Right Internal Carotid Artery: No significant plaque or narrowing. 2. Left Internal Carotid Artery: No significant plaque or narrowing. Head MRA 01/19/18 00:00 CONCLUSION: 1. The examination is degraded by motion artifact. 2. No hemodynamically significant stenosis despite diffuse atherosclerotic disease. Discharge Plan - Discharge Disposition Patient Disposition: Discharge Home - Discharge Condition Condition: Stable - Discharge Order Discharge Orders: Discharge Order (Routine); Ordered 01/20/18 Ordered By: Flory Mendez - Discharge Details Anticipated Discharge Date: 01/19/18 - Physicians Team Primary Care Provider: Do Quinton Levin Attending Provider: Demi Milligan Other Providers: Madina Liang MD
[2018-01-20] MEDS: Senna/Docusate Sodium 8.6/50 MG Tablet PO SCH (08:37)
[2018-01-20] MEDS: Venlafaxine XR 75 MG Capsule PO SCH (08:38)
[2018-01-20] MEDS: Ascorbic Acid 500 MG Tablet PO SCH (08:38)
[2018-01-20] MEDS: Pantoprazole Sodium 20 MG DR Tablet PO SCH (08:38)
[2018-01-20] MEDS: Metoprolol Tartrate 50 MG Tablet PO SCH (08:39)
[2018-01-20] MEDS: Lisinopril 10 MG Tablet PO SCH (08:39)
[2018-01-20 09:02] VITALS: RESP 18; TEMP 98.2; O2SAT 97
[2018-01-20 09:21] VITALS: BP 151/87; PULSE 63
== END 2018-01-20 11:00 | disposition home or self-care (01) ==
LOC: PHEDA 21:38 → PH3 21:38 → PHED 21:38 → PH3 01-18 01:10
PROVIDERS: ADMIT Hospitalist; ATTEND Hospitalist
DX: I11.9 Hypertensive heart disease without heart failure; G20 Parkinson's disease; F41.9 Anxiety disorder, unspecified; Z90.710 Acquired absence of both cervix and uterus; F32.9 Major depressive disorder, single episode, unspecified; R06.02 Shortness of breath; Z96.649 Presence of unspecified artificial hip joint; R41.0 Disorientation, unspecified; N39.0 Urinary tract infection, site not specified; Z96.1 Presence of intraocular lens